=== PATIENT | female | born 1980 | race Caucasian/White ===

== ENCOUNTER 2016-07-16 19:51 | Emergency (ER) | payer OTHER ==
[2016-07-16] MEDS ORDERED: NS 0.9% 1000 ML* 1,000 ML IV ONE (20:22)
[2016-07-16] MEDS ORDERED: Famotidine IV* 10 MG/ML 2 ML (20 mg) IV ONE (20:36)
[2016-07-16] MEDS ORDERED: Ondansetron INJ* 2 MG/ML VIAL IV ONE (20:36)
[2016-07-16 21:03] LABS: Hematocrit 39 % (35-47); Hemoglobin 12.8 g/dl (12.0-16.0); Mean Corpuscular HGB Conc 33 g/dl (31-36); Mean Corpuscular Hemoglobin 29 pg (27-31); Mean Corpuscular Volume 88 fL (80-97); Mean Platelet Volume 7 um3 (7.4-10.4); Red Blood Count 4.47 10^6/ul (4.0-5.4); Red Cell Distribution Width 13 % (10.5-15); White Blood Count 4.3 10^3/ul (3.5-10.8)
[2016-07-16 21:18] LABS: Albumin 4.3 g/dL (3.2-5.2); Alkaline Phosphatase 98 U/L (34-104); Amylase 28 U/L (29-103); Anion Gap 8 mmol/L (2-11); BUN/Creatinine Ratio 22.9 (8-20); Blood Urea Nitrogen 16 mg/dL (6-24); C Reactive Protein 16.13 mg/L (< 5.00); CO2 Carbon Dioxide 26 mmol/L (22-32); Calcium 9.1 mg/dL (8.6-10.3); Chloride 100 mmol/L (101-111); EGFR African American 121.8 (>60); EGFR Non-African American 94.7 (>60); Globulin 3.1 g/dL (2-4); Glucose 113 mg/dL (70-100); Lipase 19 U/L (11.0-82.0); Potassium 3.5 mmol/L (3.5-5.0); Sodium 134 mmol/L (133-145); Total Protein 7.4 g/dL (6.4-8.9)
[2016-07-16 21:37] LABS: ALT 1393 U/L (7-52); AST 1710 U/L (13-39)
--- NOTE | 2016-07-16 22:38 | RAD ---
HISTORY: Right upper quadrant pain, increased LFTs COMPARISONS: None relevant TECHNIQUE: Multiple transverse and longitudinal ultrasound images were obtained of the right upper quadrant of the abdomen using grayscale and color Doppler imaging. FINDINGS: The study is limited by patient bowel gas. LIVER: The liver is diffusely echogenic and coarse in echotexture, with decreased acoustic transmission. The liver is enlarged measuring 20 cm in long axis.. There is normal hepatopedal flow of the portal vein on Doppler imaging. BILIARY TREE: There is no intrahepatic or extrahepatic biliary dilatation. The common duct measures 0.4 cm. GALLBLADDER: The patient is status post cholecystectomy. PANCREAS: The pancreas is obscured by overlying bowel gas. RIGHT KIDNEY: The right kidney is normal in shape, size, contour, and echogenicity. There is no hydronephrosis or nephrolithiasis. The right kidney measures 11.8 x 4.8 x 5.1 cm. AORTA AND IVC: The aorta is not well visualized secondary to overlying bowel gas. The IVC is unremarkable. FLUID: There are no pleural effusions. There is no free fluid within the hepatorenal recess. OTHER FINDINGS: None. IMPRESSION: HEPATOMEGALY WITH FATTY INFILTRATION OF THE LIVER
[2016-07-16 23:01] LABS: Acetaminophen < 15 mcg/mL
[2016-07-16 23:05] VITALS: BP 127/68
[2016-07-16] MEDS ORDERED: Ondansetron ODT TAB* 4 MG PO ONE (23:38)
--- NOTE | 2016-07-16 23:48 | ED ---
Janett Chow Anna, scribed for Mike Londono MD on 07/16/16 at 2036 . GI/ HPI - HPI Summary HPI Summary: Pt is a 36 y/o female coming to [facility] presenting with sudden onset of intermittent n/v/d that began at 0400 this morning. She describes the severity of the pain as 10/10. She has had five episodes of emesis, including a prolonged episode this morning, and she has not eaten today. She was not able to keep down the fluids she drank this afternoon. She additionally reports cramping abd pain beginning this afternoon, diarrhea, sweats, and lower back pain that extends into her leg as a result of a slipped disk. She took Tylenol this morning, which did not alleviate the symptoms. She has been using steroid injections for her lower back pain, but the injections have not fully alleviated the pain. She denies recent travel or use of Abx. Contacts at home have recently had stomach flu and PNA. - History of Current Complaint Chief Complaint: EDNauseaVomitDiarrh Time Seen by Provider: 07/16/16 20:21 Stated Complaint: VOMITING Hx Obtained From: Patient, Family/Hemp [employer] Taker Off - accompanied by boyfriend Onset/Duration: Started Hours Ago Timing: Intermittent Severity: Moderate Current Severity: Moderate Pain Intensity: 10 - Allergy/Home Medications Allergies/Adverse Reactions: Allergies Allergy/AdvReac Type Severity Reaction Status Date / Time Cyclobenzaprine Allergy Hives/Diff. Verified 07/16/16 20:03 [From Flexeril] Breathing/I tching PMH/Surg Hx/FS Hx/Imm Hx Endocrine/Hematology History: Reports: Hx Thyroid Disease Denies: Hx Diabetes Cardiovascular History: Denies: Hx Hypertension, Hx Pacemaker/ICD Respiratory History: Denies: Hx Asthma, Hx Chronic Obstructive Pulmonary Disease (COPD) GI History: Denies: Hx Ulcer History: Denies: Hx Dialysis, Hx Renal Disease Musculoskeletal History: Reports: Hx Back Problems - herniated disc Sensory History: Denies: Hx Hearing Aid Neurological History: Reports: Other Neuro Impairments/Disorders - PAIN CLINIC PT Psychiatric History: Reports: Hx Panic Disorder - anxiety - Surgical History Surgery Procedure, Year, and Place: 2011 - back surgery - herniated disk (L5-S1 per Pt). 2008 - uterine ablation. 2007 - c-sec and tubal. 2000 - gallbladder removed, C Section. Tonsillectomy and adenoidectomy. Breast reduction at age 16, reconstructive jaw surgery age 14. 2015 VEIN SURGERY ON RIGHT LEG Infectious Disease History: No Infectious Disease History: Denies: Hx Hepatitis, Hx Human Immunodeficiency Virus (HIV), Traveled Outside the [place] in Last 30 Days - Family History Known Family History: Negative: Cardiac Disease, Diabetes - Social History Occupation: Employed Full-time Lives: With Family Alcohol Use: Occasionally Substance Use Type: Reports: None Substance Use Comment - Amount & Last Used: hydrocodone/acetaminophen Smoking Status (MU): Never Smoked Tobacco Review of Systems Positive: Skin Diaphoresis Positive: Abdominal Pain, Vomiting, Diarrhea, Nausea Positive: Myalgia All Other Systems Reviewed And Are Negative: Yes Physical Exam Triage Information Reviewed: Yes Vital Signs On Initial Exam: Initial Vitals Temp Pulse Resp BP Pulse Ox 98.8 F 106 16 149/78 100 07/16/16 20:00 07/16/16 20:00 07/16/16 20:00 07/16/16 20:00 07/16/16 20:00 Vital Signs Reviewed: Yes Appearance: Positive: Well-Appearing, No Pain Distress, Well-Nourished Skin: Positive: Warm, Skin Color Reflects Adequate Perfusion, Dry Head/Face: Positive: Normal Head/Face Inspection Eyes: Positive: EOMI, HANS Neck: Positive: Supple, Nontender Respiratory/Lung Sounds: Positive: Clear to Auscultation, Breath Sounds Present Cardiovascular: Positive: Normal, RRR Abdomen Description: Positive: Other: - Mild diffuse abd tenderness. No rebound.. Negative: Guarding Bowel Sounds: Positive: Present Musculoskeletal: Positive: Normal, Strength/ROM Intact Neurological: Positive: Normal, Sensory/Motor Intact, Alert, Oriented to Person Place, Time Psychiatric: Positive: Affect/Mood Appropriate Diagnostics - Vital Signs Vital Signs Temp Pulse Resp BP Pulse Ox 07/16/16 20:00 98.8 F 106 16 149/78 100 - Laboratory Lab Results: Lab Results 07/16/16 07/16/16 Range/Units 20:38 20:38 WBC 4.3 (3.5-10.8) 10^3/ul RBC 4.47 (4.0-5.4) 10^6/ul Hgb 12.8 (12.0-16.0) g/dl Hct 39 (35-47) % MCV 88 (80-97) fL MCH 29 (27-31) pg MCHC 33 (31-36) g/dl RDW 13 (10.5-15) % Plt Count 156 (150-450) 10^3/ul MPV 7 L (7.4-10.4) um3 Neut % (Auto) 79.1 (38-83) % Lymph % (Auto) 10.7 L (25-47) % [place] % (Auto) 9.9 H (1-9) % Eos % (Auto) 0.2 (0-6) % Baso % (Auto) 0.1 (0-2) % Absolute Neuts (auto) 3.4 (1.5-7.7) 10^3/ul Absolute Lymphs (auto) 0.5 L (1.0-4.8) 10^3/ul Absolute Monos (auto) 0.4 (0-0.8) 10^3/ul Absolute Eos (auto) 0 (0-0.6) 10^3/ul Absolute Basos (auto) 0 (0-0.2) 10^3/ul Absolute Nucleated RBC 0 10^3/ul Nucleated RBC % 0 Sodium 134 (133-145) mmol/L Potassium 3.5 (3.5-5.0) mmol/L Chloride 100 L (101-111) mmol/L Carbon Dioxide 26 (22-32) mmol/L Anion Gap 8 (2-11) mmol/L BUN 16 (6-24) mg/dL Creatinine 0.70 (0.51-0.95) mg/dL Est GFR ( Amer) 121.8 (>60) Est GFR (Non-Af Amer) 94.7 (>60) BUN/Creatinine Ratio 22.9 H (8-20) Glucose 113 H (70-100) mg/dL Calcium 9.1 (8.6-10.3) mg/dL Total Bilirubin 2.00 H (0.2-1.0) mg/dL AST 1710 H (13-39) U/L ALT 1393 H (7-52) U/L Alkaline Phosphatase 98 (34-104) U/L C-Reactive Protein 16.13 H (< 5.00) mg/L Total Protein 7.4 (6.4-8.9) g/dL Albumin 4.3 (3.2-5.2) g/dL Globulin 3.1 (2-4) g/dL Albumin/Globulin Ratio 1.4 (1-3) Amylase 28 L (29-103) U/L Lipase 19 (11.0-82.0) U/L Beta HCG, Quant < 0.60 mIU/mL Acetaminophen < 15 mcg/mL Result Diagrams: 07/16/16 20:38 07/16/16 20:38 Lab Statement: Any lab studies that have been ordered have been reviewed, and results considered in the medical decision making process. - Ultrasound No standard instances Ultrasound Interpretation: Positive (See Comments) Ultrasound Interpretation Completed By: Radiologist - ABD US IMPRESSION: HEPATOMEGALY WITH FATTY INFILTRATION OF THE LIVER GIGU Course/Dx - Course Assessment/Plan: Pt is a 36 y/o female coming to [facility] presenting with sudden onset of intermittent n/v/d that began at 0400 this morning. She describes the severity of the pain as 10/10. She has had five episodes of emesis, including a prolonged episode this morning, and she has not eaten today. She was not able to keep down the fluids she drank this afternoon. She additionally reports cramping abd pain beginning this afternoon, diarrhea, sweats, and lower back pain that extends into her leg as a result of a slipped disk. She took Tylenol this morning, which did not alleviate the symptoms. She has been using steroid injections for her lower back pain, but the injections have not fully alleviated the pain. She denies recent travel or use of Abx. Contacts at home have recently had stomach flu and PNA. Bloodwork shows chloride level of 100, glucose of 113, total bilirubin of 2.00, AST of 1710, ALT of 1393, and C- reactive protein of 16.13. Amylase and lipase are normal. Tylenol level is <15. RUQ US shows hepatomegaly with fatty infiltration of the liver. In the ED course, pt was given IV fluids, Zofran for nausea, and her symptoms have resolved. At this point, she is asymptomatic. In assessment of her abdomen, it is soft, mildly tender in the epigastric area without rebounding or guarding. There are positive bowel sounds. Pt reports that the last few days she has been taking lots of Tylenol however level is only 15. Denies alcohol intake or hx of hepatitis. Discussed case with Dr. Cardenas (GI) at 2320. He recommends no further studies. Pt can follow up as an outpatient. I will be giving a prescription for Zofran for the pt. She was recommended to return to the ED for any pain, n/v, fever, chills, or any other changing or worsening symptoms. At this time, the pt will be discharged home. She is hemodynamically stable and A& Ox3. she understands she should return to the emergency room if she experiences any increase in abdominal pain, nausea and vomiting not controlled by Zofran, fevers, chills, or any other symptoms. She will also f/u results of hepatitis pannel with PMD - Diagnoses Differential Diagnoses - Female: Constipation, Colitis, Gall Bladder Disease, Urinary Tract Infection Provider Diagnoses: increased LFT, Nausea vomiting and diarrhea - Physician Notifications Discussed Care Of Patient With: Dr. Cardenas (GI) at 2320. He recommends no further studies. Pt can follow up as an outpatient. Discharge - Discharge Plan Condition: Stable Disposition: HOME Prescriptions: Ondansetron ODT TAB* [Zofran Odt TAB*] 4 mg PO Q6H PRN #12 tab.odt PRN Reason: Vomiting Patient Education Materials: Ondansetron (By mouth), Liver Profile (GEN), Acute Nausea and Vomiting (ED) Referrals: Chris Cardenas MD [Medical Doctor] - Veronica Auguste MD [Primary Care Provider] - Additional Instructions: Follow up with primary care physician within 48 hours. Return to the emergency room if you experience any increase in abdominal pain, nausea and vomiting not controlled by Zofran, fevers, chills, or any other symptoms. The documentation as recorded by the Janett martin Anna accurately reflects the service I personally performed and the decisions made by , Mike Londono MD.
== END 2016-07-17 00:13 | disposition home or self-care (01) ==
LOC: ED 19:51
DX: R11.2 Nausea with vomiting, unspecified (principal); R19.7 Diarrhea, unspecified; R79.89 Other specified abnormal findings of blood chemistry; K21.9 Gastro-esophageal reflux disease without esophagitis; M54.5 Low back pain; K76.0 Fatty (change of) liver, not elsewhere classified
CPT/HCPCS: 36415; 76705; 80053; 80074; 80329; 82150; 83690; 84702; 85025; 86140; 96360; 96374; 96375; 99283; A9270-GY; G0480; J2405

== ENCOUNTER 2017-01-06 10:54 | Emergency (ER) | payer OTHER ==
--- NOTE | 2017-01-06 11:32 | RAD ---
Indication: Left ankle swelling. 3 views of left ankle demonstrate soft tissue swelling laterally. There is likely a nondisplaced transverse fracture of the distal fibula. IMPRESSION: Nondisplaced fracture of the distal fibula with soft tissue swelling laterally.
[2017-01-06 11:39] VITALS: BP 110/74
--- NOTE | 2017-02-06 17:18 | UC ---
Lower Extremity/Ankle HPI - HPI Summary HPI Summary: Stepped off curb and twisted left ankle at 9pm the night prior - History of Current Complaint Chief Complaint: UCLowerExtremity Stated Complaint: ANKLE INJURY Time Seen by Provider: 01/06/17 11:36 Hx Obtained From: Patient Hx Last Menstrual Period: 12/23/16 ?: No Onset/Duration: Sudden Onset, Lasting Days - 1, Still Present Severity Initially: Mild Severity Currently: Mild Pain Intensity: 4 Pain Scale Used: 0-10 Numeric Aggravating Factor(s): Standing, Ambulation Alleviating Factor(s): Rest, Elevation - Allergies/Home Medications Allergies/Adverse Reactions: Allergies Allergy/AdvReac Type Severity Reaction Status Date / Time Cyclobenzaprine Allergy Hives/Diff. Verified 01/06/17 11:11 [From Flexeril] Breathing/I tching PMH/Surg Hx/FS Hx/Imm Hx Previously Healthy: No Endocrine History: Hypothyroidism Psychological History: Depression - Surgical History Surgical History: Yes Surgery Procedure, Year, and Place: 2011 - back surgery - herniated disk (L5-S1 per Pt). 2008 - uterine ablation. 2007 - c-sec and tubal. 2000 - gallbladder removed, C Section. Tonsillectomy and adenoidectomy. Breast reduction at age 16, reconstructive jaw surgery age 14. 2014 VEIN SURGERY ON RIGHT LEG - Family History Known Family History: Positive: None Negative: Cardiac Disease, Diabetes - Social History Occupation: Unemployed Lives: With Family Alcohol Use: Occasionally Substance Use Type: None Substance Use Comment - Amount & Last Used: hydrocodone/acetaminophen Smoking Status (MU): Never Smoked Tobacco Review of Systems Constitutional: Negative Skin: Negative Eyes: Negative ENT: Negative Respiratory: Negative Cardiovascular: Negative Gastrointestinal: Negative Genitourinary: Negative Motor: Negative Neurovascular: Negative Musculoskeletal: Arthralgia - lateral left ankle pain Neurological: Negative Psychological: Negative All Other Systems Reviewed And Are Negative: Yes Physical Exam Triage Information Reviewed: Yes Appearance: Well-Appearing, No Pain Distress, Well-Nourished Vital Signs: Initial Vital Signs Temp 97.6 F 01/06/17 11:12 Resp 16 01/06/17 11:12 Vital Signs Reviewed: Yes Eye Exam: Normal Eyes: Positive: Conjunctiva Clear ENT Exam: Normal ENT: Positive: Normal ENT inspection, Hearing grossly normal. Negative: Nasal congestion, Nasal drainage, Trismus, Muffled/hoarse voice Dental Exam: Normal Neck exam: Normal Neck: Positive: Supple, Nontender Respiratory Exam: Normal Respiratory: Positive: No respiratory distress, No accessory muscle use Cardiovascular Exam: Normal Cardiovascular: Positive: RRR, Pulses Normal, Brisk Capillary Refill Musculoskeletal Exam: Other - left lateral ankle Musculoskeletal: Positive: Edema @ Neurological Exam: Normal Neurological: Positive: Alert Psychological Exam: Normal Skin Exam: Normal Diagnostics - Radiology No standard instances Xray Interpretation: Positive (See Comments) Radiology Interpretation Completed By: Radiologist Lower Extremity Course/Dx - Course Course Of Treatment: cam boot, crutches, rice, ibuprofen, hydrocodone, follow with ortho this week, NWB - Differential Dx/Diagnosis Differential Diagnosis/HQI/PQRI: Fracture (Closed), Sprain, Strain Provider Diagnoses: Non displaced left distal fibula fracture Discharge - Discharge Plan Condition: Stable Disposition: HOME Prescriptions: Hydrocodone-Acetaminophen [Hydrocodone/Acetaminophen 5-325 mg] 1 tab PO Q6H PRN #20 tab MDD 4 PRN Reason: Pain Meloxicam 7.5 mg PO BID #60 Meloxicam [Mobic] 7.5 mg PO BID #60 tab Patient Education Materials: Ankle Fracture (ED), Crutch Instructions (ED), RICE Therapy (ED) Referrals: Veronica Auguste MD [Primary Care Provider] - Willam Hernandez MD [Medical Doctor] - 4 Days
== END 2017-01-06 12:20 | disposition home or self-care (01) ==
LOC: UCEAST 10:54
DX: S82.832A Other fracture of upper and lower end of left fibula, initial encounter for closed fracture (principal); X50.1XXA Overexertion from prolonged static or awkward postures, initial encounter; Y93.89 Activity, other specified; Y92.480 Sidewalk as the place of occurrence of the external cause; E03.9 Hypothyroidism, unspecified; F32.9 Major depressive disorder, single episode, unspecified; Z90.49 Acquired absence of other specified parts of digestive tract; Z88.8 Allergy status to other drugs, medicaments and biological substances
CPT/HCPCS: 99213; G0463

== ENCOUNTER 2017-05-23 22:02 | Emergency (ER) | payer OTHER ==
[2017-05-23 22:08] VITALS: BP 121/68
[2017-05-23] MEDS ORDERED: Dexamethasone TAB* 4 MG PO ONE (22:25)
--- NOTE | 2017-05-23 22:43 | ED ---
Throat Pain/Nasal Congestion - HPI Summary HPI Summary: 36F presents with sore throat, cough, and sinus congestion for 2 days. She states her throat is bothering her the most. She states it hurts to swallow but is still able to do so. no chest pain or SOB. no abdominal pain. States has post nasal drip. states has had some mucus with blood in it. no medical history. significant other has similar symptoms and was seen here for symptoms. denies any history of strept. no fevers. - History of Current Complaint Chief Complaint: EDThroatPain Time Seen by Provider: 05/23/17 22:16 - Allergies/Home Medications Allergies/Adverse Reactions: Allergies Allergy/AdvReac Type Severity Reaction Status Date / Time Cyclobenzaprine Allergy Hives/Diff. Verified 01/06/17 11:11 [From Flexeril] Breathing/I tching PMH/Surg Hx/FS Hx/Imm Hx Endocrine/Hematology History: Reports: Hx Thyroid Disease Denies: Hx Diabetes Cardiovascular History: Denies: Hx Hypertension, Hx Pacemaker/ICD Respiratory History: Denies: Hx Asthma, Hx Chronic Obstructive Pulmonary Disease (COPD) GI History: Denies: Hx Ulcer History: Denies: Hx Dialysis, Hx Renal Disease Musculoskeletal History: Reports: Hx Back Problems - herniated disc Sensory History: Denies: Hx Hearing Aid Neurological History: Reports: Other Neuro Impairments/Disorders - PAIN CLINIC PT Psychiatric History: Reports: Hx Panic Disorder - anxiety - Surgical History Surgery Procedure, Year, and Place: 2011 - back surgery - herniated disk (L5-S1 per Pt). 2008 - uterine ablation. 2007 - c-sec and tubal. 2000 - gallbladder removed, C Section. Tonsillectomy and adenoidectomy. Breast reduction at age 16, reconstructive jaw surgery age 14. 2014 VEIN SURGERY ON RIGHT LEG Infectious Disease History: No Infectious Disease History: Denies: Hx Hepatitis, Hx Human Immunodeficiency Virus (HIV), Traveled Outside the [place] in Last 30 Days - Family History Known Family History: Positive: None Negative: Cardiac Disease, Diabetes - Social History Alcohol Use: Occasionally Substance Use Type: Reports: None Substance Use Comment - Amount & Last Used: hydrocodone/acetaminophen Smoking Status (MU): Never Smoked Tobacco Review of Systems Negative: Fever Positive: Sore Throat, Nasal Discharge Negative: Chest Pain Positive: Cough. Negative: Shortness Of Breath All Other Systems Reviewed And Are Negative: Yes Physical Exam Triage Information Reviewed: Yes Vital Signs On Initial Exam: Initial Vitals Temp Pulse Resp BP Pulse Ox 97.6 F 70 20 121/68 97 05/23/17 22:05 05/23/17 22:05 05/23/17 22:05 05/23/17 22:05 05/23/17 22:05 Vital Signs Reviewed: Yes Appearance: Positive: Well-Appearing Skin: Positive: Warm, Dry Head/Face: Positive: Normal Head/Face Inspection Eyes: Positive: Normal, EOMI, HANS, Conjunctiva Clear ENT: Positive: Normal ENT inspection, Pharyngeal erythema, TMs normal, Uvula midline, Other - soft palate symmetric. Negative: Tonsillar swelling, Tonsillar exudate, Trismus, Muffled voice, Hoarse voice Neck: Positive: Supple, Nontender, No Lymphadenopathy Respiratory/Lung Sounds: Positive: Clear to Auscultation, Breath Sounds Present Cardiovascular: Positive: Normal, RRR Abdomen Description: Positive: Nontender, Soft Bowel Sounds: Positive: Present Musculoskeletal: Positive: Normal Neurological: Positive: Normal Psychiatric: Positive: Normal Diagnostics - Vital Signs Vital Signs Temp Pulse Resp BP Pulse Ox 05/23/17 22:37 75 98 05/23/17 22:05 97.6 F 70 20 121/68 97 - Laboratory Lab Results: Lab Results 05/23/17 05/23/17 Range/Units 22:19 22:21 Influenza A (Rapid) Negative (Negative) Influenza B (Rapid) Negative (Negative) Group A Strep Rapid Negative (Negative) Lab Statement: Any lab studies that have been ordered have been reviewed, and results considered in the medical decision making process. EENT Course/Dx - Course Course Of Treatment: 36F presents with sore throat, cough, and sinus congestion for 2 days. She states her throat is bothering her the most. She states it hurts to swallow but is still able to do so. no chest pain or SOB. no abdominal pain. States has post nasal drip. states has had some mucus with blood in it. no medical history. significant other has similar symptoms and was seen here for symptoms. denies any history of strept. no fevers. on exam pharynx erythema, uvula midline, soft palate symmetric. lungs CTA, ear normal. nasal congestion. strept and flu neg. will treat with decadron and magic mouth wash. patinet understand and agrees with plan. - Differential Diagnoses Differential Diagnoses: Pharyngitis, Tonsilitis, URI/Bronchitis - Diagnoses Provider Diagnoses: Pharyngitis, Upper respiratory infection Discharge - Discharge Plan Condition: Good Disposition: HOME Prescriptions: Dexamethasone TAB* [Decadron TAB*] 4 mg PO DAILY #4 tab Magic Mouth Was-TOMMY/MAAL/LIDO* 5 ml SWISH SPIT QID #100 ml Patient Education Materials: Pharyngitis (ED) Referrals: Veronica Auguste MD [Primary Care Provider] - Additional Instructions: Magic mouthwash 5ml swish and spit can use 4x a day Take steroid once a day for 4 more days Take Tylenol or ibuprofen for pain every 6 hours Use saline spray in nose as much as needed Use sudafed for nasal congestion Can gargle salt water Can use cough drops or products such as cloraseptic spray Return to ED if develop fever does not respond to Tylenol or ibuprofen, inability to swallow, or difficulty breathing or any new or worsening symptoms
== END 2017-05-23 22:56 | disposition home or self-care (01) ==
LOC: ED 22:02
DX: J06.9 Acute upper respiratory infection, unspecified (principal); J02.9 Acute pharyngitis, unspecified
CPT/HCPCS: 87502; 87651; 99282; J8540

== ENCOUNTER 2017-09-08 16:48 | Emergency (ER) | payer OTHER ==
[2017-09-08 17:08] VITALS: BP 136/54
--- NOTE | 2017-09-08 17:19 | UC ---
Stan Chow Stephanie, scribed for Dale Patterson MD on 09/08/17 at 1706 . HPI Febrile Illness - HPI Summary HPI Summary: The pt is a 37 y/o F presenting to with c/o fever that began on 09/04/17. Symptoms include SOB, productive cough with green sputum, chills, diaphoresis, wheezing, CP with deep breaths, itching in the ears and rhinorrhea. - History of Current Complaint Time Seen by Provider: 09/08/17 16:49 Hx Obtained From: Patient Hx Last Menstrual Period: 12/23/16 Onset/Duration: Started Days Ago - 4, Still Present Timing: Constant Current Severity: Moderate Aggravating Factors: Nothing Alleviating Factors: Nothing Associated Signs and Symptoms: Cough, Diaphoresis, Other: - SOB, productive cough with green sputum, chills, diaphoresis, wheezing, CP with deep breaths, itching in the ears and rhinorrhea. - Allergy/Home Medications Allergies/Adverse Reactions: Allergies Allergy/AdvReac Type Severity Reaction Status Date / Time cyclobenzaprine Allergy Hives/Diff. Verified 09/08/17 17:03 Breathing/I tching PMH/Surg Hx/FS Hx/Imm Hx Previously Healthy: Yes - The pt denies any past medical hx. - Surgical History Surgical History: Yes Surgery Procedure, Year, and Place: 2011 - back surgery - herniated disk (L5-S1 per Pt). 2008 - uterine ablation. 2007 - c-sec and tubal. 2000 - gallbladder removed, C Section. Tonsillectomy and adenoidectomy. Breast reduction at age 16, reconstructive jaw surgery age 14. 2015 VEIN SURGERY ON RIGHT LEG - Family History Known Family History: Negative: Cardiac Disease, Diabetes - Social History Occupation: Employed Full-time Lives: With Family Alcohol Use: Occasionally Substance Use Type: None Substance Use Comment - Amount & Last Used: hydrocodone/acetaminophen Smoking Status (MU): Never Smoked Tobacco Have You Smoked in the Last Year: No Review of Systems Constitutional: Fever, Chills, Other - diaphoresis Skin: Negative Eyes: Negative ENT: Nasal Discharge, Other - itching ears Respiratory: Shortness Of Breath, Cough, Other - wheezing Cardiovascular: Chest Pain - with deep breaths Gastrointestinal: Negative Genitourinary: Negative Motor: Negative Neurovascular: Negative Musculoskeletal: Negative Neurological: Negative Psychological: Negative Is Patient Immunocompromised?: No All Other Systems Reviewed And Are Negative: Yes Physical Exam - Summary Physical Exam Summary: General: well-appearing, no pain distress Skin: warm, color reflects adequate perfusion, dry Head: normal Eyes: EOMI, HANS ENT: rhinorrhea, erythematous posterior pharynx Neck: supple, nontender, anterior cervical lymphadenopathy Respiratory: CTA, breath sounds present Cardiovascular: RRR Abdomen: soft, nontender Bowel: present Musculoskeletal: normal, strength/ROM intact Neurological: normal, sensory/motor intact, A&O x3 Psychological: affect/mood appropriate Triage Information Reviewed: Yes Vital Signs: Initial Vital Signs Temp 98.2 F 09/08/17 17:04 Pulse 104 09/08/17 17:04 Resp 20 09/08/17 17:04 BP 136/54 09/08/17 17:04 Pulse Ox 97 09/08/17 17:04 Vital Signs Reviewed: Yes Course/Dx - Diagnoses Clinic Provider Diagnoses: BRONCHITIS WITH BRONCHOSPASM Discharge - Sign-Out/Discharge Documenting (check all that apply): Discharge - Discharge Plan Condition: Stable Disposition: HOME Prescriptions: Albuterol HFA INHALER* [Ventolin HFA Inhaler*] 2 puff INH Q4H PRN #1 mdi PRN Reason: Wheezing Azithromyxin CHESTER (NF) [Z-Chester (Zithromax) 250 mg tabs #6] 2 tab PO .TODAY, THEN 1 DAILY #6 tab Benzonatate CAP* [Tessalon 100 MG CAP*] 100 mg PO TID PRN #15 cap PRN Reason: Cough Patient Education Materials: Acute Bronchitis (ED), Wheezing (ED) Forms: *Work Release Referrals: Veronica Auguste MD [Primary Care Provider] - Additional Instructions: FOLLOW UP WITH YOUR DOCTOR. GET RECHECKED FOR ANY WORSENING OF YOUR CONDITION OR QUESTIONS OR CONCERNS. - Billing Disposition and Condition Condition: STABLE Disposition: HOME The documentation as recorded by the Stan martin Stephanie accurately reflects the service I personally performed and the decisions made by me, Dale Patterson MD.
== END 2017-09-08 17:20 | disposition home or self-care (01) ==
LOC: UCEAST 16:48
DX: J20.9 Acute bronchitis, unspecified (principal); Z88.8 Allergy status to other drugs, medicaments and biological substances
CPT/HCPCS: 99212; G0463

== ENCOUNTER 2017-09-26 19:38 | Emergency (ER) | payer OTHER ==
--- NOTE | 2017-09-26 20:13 | UC ---
Knee Pain HPI - HPI Summary HPI Summary: Patient received a clip injury to her left knee by a dog at the dog park had immediate pain and burning in her knee and felt like her knee was all gone for stable - History of Current Complaint Chief Complaint: UCLowerExtremity Stated Complaint: KNEE INJURY Time Seen by Provider: 09/26/17 20:12 Hx Obtained From: Patient ?: No Onset/Duration: Sudden Onset, Lasting Hours Severity Initially: Moderate Severity Currently: Moderate Location Of Injury: left knee Character: Aching, Throbbing Aggravating Factor(s): Movement, Weight Bearing Alleviating Factor(s): Position Associated Signs And Symptoms: Positive: Negative Able to Bear Weight: Yes - Allergies/Home Medications Allergies/Adverse Reactions: Allergies Allergy/AdvReac Type Severity Reaction Status Date / Time cyclobenzaprine Allergy Hives/Diff. Verified 09/26/17 20:17 Breathing/I tching PMH/Surg Hx/FS Hx/Imm Hx Previously Healthy: No Endocrine History: Hypothyroidism Psychological History: Depression - Surgical History Surgical History: Yes Surgery Procedure, Year, and Place: 2011 - back surgery - herniated disk (L5-S1 per Pt). 2008 - uterine ablation. 2007 - c-sec and tubal. 2000 - gallbladder removed, C Section. Tonsillectomy and adenoidectomy. Breast reduction at age 16, reconstructive jaw surgery age 14. 2014 VEIN SURGERY ON RIGHT LEG - Family History Known Family History: Positive: None Negative: Cardiac Disease, Diabetes - Social History Occupation: Employed Part-time Lives: With Family Alcohol Use: Occasionally Substance Use Type: None Substance Use Comment - Amount & Last Used: hydrocodone/acetaminophen Smoking Status (MU): Never Smoked Tobacco Have You Smoked in the Last Year: No Review of Systems Constitutional: Negative Skin: Negative Eyes: Negative ENT: Negative Respiratory: Negative Cardiovascular: Negative Gastrointestinal: Negative Genitourinary: Negative Motor: Negative Neurovascular: Negative Musculoskeletal: Arthralgia - left knee pain Neurological: Negative Psychological: Negative Is Patient Immunocompromised?: No All Other Systems Reviewed And Are Negative: Yes Physical Exam Triage Information Reviewed: Yes Appearance: Well-Appearing, Well-Nourished, Pain Distress Vital Signs Reviewed: Yes Eye Exam: Normal Eyes: Positive: Conjunctiva Clear ENT Exam: Normal ENT: Positive: Normal ENT inspection, Hearing grossly normal. Negative: Nasal congestion, Nasal drainage, Trismus, Muffled voice, Hoarse voice Dental Exam: Normal Neck exam: Normal Neck: Positive: Supple, Nontender, No Lymphadenopathy Respiratory Exam: Normal Respiratory: Positive: Chest non-tender, No respiratory distress, No accessory muscle use Cardiovascular Exam: Normal Cardiovascular: Positive: RRR, Pulses Normal, Brisk Capillary Refill Musculoskeletal Exam: Normal Musculoskeletal: Positive: ROM Intact, No Edema, Strength Limited @ - left knee Neurological Exam: Normal Neurological: Positive: Alert, Muscle Tone Normal Psychological Exam: Normal Skin Exam: Normal Diagnostics - Radiology No standard instances Xray Interpretation: No Acute Changes Radiology Interpretation Completed By: ED Physician, Radiologist Knee Pain Course/Dx - Course Course Of Treatment: [place] wrap knee immobilizer and crutches ibuprofen hydrocodone rest ice elevation and non- weightbearing. Follow with orthopedic doctor on Friday if not 100% resolved - Differential Dx/Diagnosis Provider Diagnoses: Left knee strain Discharge - Sign-Out/Discharge Documenting (check all that apply): Discharge - Discharge Plan Condition: Stable Disposition: HOME Patient Education Materials: Knee Sprain (DC), Knee Immobilizer (ED) Referrals: Veronica Auguste MD [Primary Care Provider] - Manish Weber MD [Medical Doctor] - 4 Days - Billing Disposition and Condition Condition: STABLE Disposition: HOME
[2017-09-26 20:16] VITALS: BP 139/84
--- NOTE | 2017-09-26 21:02 | RAD ---
INDICATION: Left knee injury. TECHNIQUE: 4 views of the left knee were obtained. FINDINGS: The bones are in normal alignment. There is mild deformity of the proximal fibula most consistent with an old healed fracture. No acute fracture is seen. No joint effusion is present. Joint spaces appear maintained. IMPRESSION: NO EVIDENCE FOR ACUTE FRACTURE.
[2017-09-26] MEDS ORDERED: HYDROcodone/ACETAMIN 5-325 MG* 1 TAB PO ONE (21:15)
== END 2017-09-26 21:38 | disposition home or self-care (01) ==
LOC: UCEAST 19:38
DX: S86.912A Strain of unspecified muscle(s) and tendon(s) at lower leg level, left leg, initial encounter (principal); W54.1XXA Struck by dog, initial encounter; Y93.89 Activity, other specified; Y92.830 Public park as the place of occurrence of the external cause; E03.9 Hypothyroidism, unspecified; F32.9 Major depressive disorder, single episode, unspecified; Z88.8 Allergy status to other drugs, medicaments and biological substances
CPT/HCPCS: 99212; G0463

== ENCOUNTER 2018-06-24 09:48 | Emergency (ER) | payer OTHER ==
[2018-06-24 10:31] VITALS: BP 123/77
--- NOTE | 2018-06-24 10:40 | ED ---
Throat Pain/Nasal Congestion - HPI Summary HPI Summary: sinus stuffiness for one week, loss of sense of taste and smell in the last several days. dry nonproductive cough mild. - History of Current Complaint Chief Complaint: UCRespiratory Time Seen by Provider: 06/24/18 10:19 Hx Obtained From: Patient Onset/Duration: Gradual Onset Severity: Moderate Associated Signs And Symptoms: Positive: Hoarseness, Sinus Discomfort Cough: Nonproductive - Allergies/Home Medications Allergies/Adverse Reactions: Allergies Allergy/AdvReac Type Severity Reaction Status Date / Time cyclobenzaprine Allergy Hives/Diff. Verified 09/26/17 20:17 Breathing/I tching PMH/Surg Hx/FS Hx/Imm Hx Previously Healthy: Yes Endocrine/Hematology History: Reports: Hx Thyroid Disease Denies: Hx Diabetes Cardiovascular History: Denies: Hx Hypertension, Hx Pacemaker/ICD Respiratory History: Reports: Hx Asthma Denies: Hx Chronic Obstructive Pulmonary Disease (COPD) GI History: Denies: Hx Ulcer History: Denies: Hx Dialysis, Hx Renal Disease Musculoskeletal History: Reports: Hx Back Problems - herniated disc Sensory History: Denies: Hx Hearing Aid Neurological History: Reports: Other Neuro Impairments/Disorders - PAIN CLINIC PT Psychiatric History: Reports: Hx Panic Disorder - anxiety - Surgical History Surgery Procedure, Year, and Place: 2011 - back surgery - herniated disk (L5-S1 per Pt). 2008 - uterine ablation. 2007 - c-sec and tubal. 2000 - gallbladder removed, C Section. Tonsillectomy and adenoidectomy. Breast reduction at age 16, reconstructive jaw surgery age 14. 2014 VEIN SURGERY ON RIGHT LEG Infectious Disease History: No Infectious Disease History: Denies: Hx Hepatitis, Hx Human Immunodeficiency Virus (HIV), Traveled Outside the [place] in Last 30 Days - Family History Known Family History: Positive: None Negative: Cardiac Disease, Diabetes - Social History Alcohol Use: Rare Substance Use Type: Reports: None Substance Use Comment - Amount & Last Used: hydrocodone/acetaminophen Smoking Status (MU): Never Smoked Tobacco Have You Smoked in the Last Year: No Review of Systems Positive: Chills, Skin Diaphoresis Eyes: Negative ENT: Negative Positive: Sore Throat, Ear Ache Cardiovascular: Negative Positive: Cough Genitourinary: Negative Musculoskeletal: Negative All Other Systems Reviewed And Are Negative: Yes Physical Exam Triage Information Reviewed: Yes Vital Signs On Initial Exam: Initial Vitals Temp Pulse Resp BP Pulse Ox 37.2 C 89 18 123/77 98 06/24/18 10:24 06/24/18 10:24 06/24/18 10:24 06/24/18 10:24 06/24/18 10:24 Vital Signs Reviewed: Yes Appearance: Positive: Well-Appearing Skin: Positive: Warm Head/Face: Positive: Normal Head/Face Inspection Eyes: Positive: Normal ENT: Positive: Normal ENT inspection Neck: Positive: Supple Respiratory/Lung Sounds: Positive: Clear to Auscultation Cardiovascular: Positive: Normal Abdomen Description: Positive: Nontender Bowel Sounds: Positive: Present Musculoskeletal: Positive: Normal Diagnostics - Vital Signs Vital Signs Temp Pulse Resp BP Pulse Ox 06/24/18 10:24 37.2 C 89 18 123/77 98 - Laboratory Lab Statement: Any lab studies that have been ordered have been reviewed, and results considered in the medical decision making process. EENT Course/Dx - Diagnoses Provider Diagnoses: Sinusitis, acute Discharge - Sign-Out/Discharge Documenting (check all that apply): Patient Departure All imaging exams completed and their final reports reviewed: No Studies - Discharge Plan Condition: Fair Disposition: HOME Prescriptions: Amoxicillin PO (*) [Amoxicillin 875 MG (*)] 875 mg PO BID 7 Days #14 tab Fluticasone NASAL SPRAY 50MCG* [Flonase NASAL SPRAY 50MCG*] 2 spray BOTH NARES DAILY #1 btl Patient Education Materials: Rhinosinusitis (DC) Referrals: Veronica Auguste MD [Primary Care Provider] - - Billing Disposition and Condition Condition: FAIR Disposition: Home
== END 2018-06-24 11:20 | disposition home or self-care (01) ==
LOC: UCEAST 09:48
DX: J01.90 Acute sinusitis, unspecified (principal); Z88.8 Allergy status to other drugs, medicaments and biological substances
CPT/HCPCS: 99212; G0463

== ENCOUNTER 2018-06-25 17:54 | Inpatient (IN) | payer OTHER ==
[2018-06-25] MEDS ORDERED: Morphine VIAL* 4 MG/ML VIAL (1 ml vial) IV ONE (19:16)
[2018-06-25] MEDS ORDERED: Ondansetron INJ* 2 MG/ML VIAL IV ONE (19:16)
[2018-06-25] MEDS ORDERED: Dexamethasone IV* 4 MG/ML 5 ML VIAL (20 MG) IVPB ONE (19:16)
--- NOTE | 2018-06-25 19:38 | ED ---
Back Pain - HPI Summary HPI Summary: Patient is a 37-year-old who presents emergency department for back pain and leg numbness/weakness times one day. Patient states she has a history of low back pain and has had surgery in the past. Patient notes she was doing more lifting over the last few weeks and developed low back pain about a week ago. - History of Current Complaint Chief Complaint: EDBackInjuryPain Stated Complaint: BACK PAIN Time Seen by Provider: 06/25/18 18:34 Hx Obtained From: Patient Hx Last Menstrual Period: now Pain Intensity: 10 - Allergies/Home Medications Allergies/Adverse Reactions: Allergies Allergy/AdvReac Type Severity Reaction Status Date / Time cyclobenzaprine Allergy Hives/Diff. Verified 09/26/17 20:17 Breathing/I tching PMH/Surg Hx/FS Hx/Imm Hx Previously Healthy: Yes Endocrine/Hematology History: Reports: Hx Thyroid Disease Denies: Hx Diabetes Cardiovascular History: Denies: Hx Hypertension, Hx Pacemaker/ICD Respiratory History: Reports: Hx Asthma Denies: Hx Chronic Obstructive Pulmonary Disease (COPD) GI History: Denies: Hx Ulcer History: Denies: Hx Dialysis, Hx Renal Disease Musculoskeletal History: Reports: Hx Back Problems - herniated disc Sensory History: Denies: Hx Hearing Aid Neurological History: Reports: Other Neuro Impairments/Disorders - PAIN CLINIC PT Psychiatric History: Reports: Hx Panic Disorder - anxiety - Surgical History Surgery Procedure, Year, and Place: 2011 - back surgery - herniated disk (L5-S1 per Pt). 2008 - uterine ablation. 2007 - c-sec and tubal. 2000 - gallbladder removed, C Section. Tonsillectomy and adenoidectomy. Breast reduction at age 16, reconstructive jaw surgery age 14. 2015 VEIN SURGERY ON RIGHT LEG Infectious Disease History: No Infectious Disease History: Denies: Hx Hepatitis, Hx Human Immunodeficiency Virus (HIV), Traveled Outside the [place] in Last 30 Days - Family History Known Family History: Positive: None Negative: Cardiac Disease, Diabetes - Social History Occupation: Employed Full-time Lives: With Family Alcohol Use: Rare Substance Use Type: Reports: Prescribed Substance Use Comment - Amount & Last Used: hydrocodone/acetaminophen Smoking Status (MU): Never Smoked Tobacco Have You Smoked in the Last Year: No Review of Systems Constitutional: Negative Negative: Fever, Chills Gastrointestinal: Negative Genitourinary: Negative Positive: Other - back and leg pain Positive: Weakness, Numbness All Other Systems Reviewed And Are Negative: Yes Physical Exam Triage Information Reviewed: Yes Vital Signs On Initial Exam: Initial Vitals Temp Pulse Resp BP Pulse Ox 97.8 F 89 18 162/89 98 06/25/18 18:03 06/25/18 18:03 06/25/18 18:03 06/25/18 18:03 06/25/18 18:03 Vital Signs Reviewed: Yes Appearance: Positive: Pain Distress - Pt. lying in bed on left side. Appears uncomfortable but nontoxic. Skin: Positive: Warm, Dry Head/Face: Positive: Normal Head/Face Inspection Eyes: Positive: Normal, EOMI Neck: Positive: Supple Musculoskeletal: Positive: Other - No midline tendernes on back exam. Decreased strength with flexion and dorsiflexion of right foot. Mild diffuse decrease sensation as well to right leg. Rectal exam done with nurseDawn. Nonthrombosed hemorrhoids. Decreased sensation and tone to rectum and perianal region. Neurological: Positive: Normal, CN Intact II-III Diagnostics - Vital Signs Vital Signs Temp Pulse Resp BP Pulse Ox 06/25/18 19:26 15 06/25/18 18:03 97.8 F 89 18 162/89 98 - Laboratory Result Diagrams: 06/25/18 20:22 06/25/18 20:22 Lab Statement: Any lab studies that have been ordered have been reviewed, and results considered in the medical decision making process. Back Pain Course/Dx - Course Course Of Treatment: Pt. presenting with worsening low back pain, right leg weakness, and saddle paresthesia. She is afebrile with stable VS. Given exam will obtain lumbar MRI to evaluate for cauda equina syndrome. Pt. given IV morphine and decadron. NPO. Labs are unremarkable. MRI per virtual radiology: IMPRESSION: 1. Degenerative disc disease greatest at L4-L5 1 there is disc bulge with. superimposed moderate to large left central caudally migrating extrusion. contributing to severe central canal stenosis, moderate to severe right lateral. recess stenosis and severe left lateral recess stenosis. Surgical consultation. may be considered. 2. Additional findings as above. Neurosx. consulted, Dr. Cyr. Dr. Cyr examined pt. in the ER and plans to take her to the OR tonight. Please see his consultation for further details. I spoke with hospitalist, Dr. Weinstein, and she agrees to admit pt. to her service. Pt. transferred to OR stable. - Diagnoses Differential Diagnosis/HQI/PQRI: Positive: Cauda Equina Syndrome, Compressive Cord Syndrome, Epidural Abscess, Herniated Disc Provider Diagnoses: Bulging lumbar disc, Weakness, Paresthesia Discharge - Sign-Out/Discharge Documenting (check all that apply): Patient Departure - Discharge Plan Condition: Stable Disposition: ADMITTED TO [facility] Referrals: Veronica Auguste MD [Primary Care Provider] - - Billing Disposition and Condition Condition: STABLE Disposition: Admitted to [facility]
[2018-06-25 20:30] LABS: ABS Basophils 0 10^3/ul (0-0.2); ABS Eosinophils 0 10^3/ul (0-0.6); ABS Lymphocytes 1.1 10^3/ul (1.0-4.8); ABS Monocytes 0.4 10^3/ul (0-0.8); ABS Neutrophils 2.5 10^3/ul (1.5-7.7); ABS Nucleated RBC 0 10^3/ul; Hematocrit 41 % (35-47); Hemoglobin 13.6 g/dl (12.0-16.0); Lymphocyte % 28.2 %; Mean Corpuscular HGB Conc 33 g/dl (31-36); Mean Corpuscular Hemoglobin 29 pg (27-31); Mean Corpuscular Volume 87 fL (80-97); Mean Platelet Volume 6.6 fL (7.4-10.4); Nucleated Red Blood Cells % 0.1; Platelet Count 205 10^3/ul (150-450); Red Cell Distribution Width 13 % (10.5-15); White Blood Count 4.1 10^3/ul (3.5-10.8)
[2018-06-25 20:47] LABS: Albumin 4.7 g/dL (3.2-5.2); Albumin/Globulin Ratio 1.7 (1-3); BUN/Creatinine Ratio 13.9 (8-20); C Reactive Protein 7.79 mg/L (<8.01); Calcium 9.9 mg/dL (8.6-10.3); EGFR African American 110.3 (>60); EGFR Non-African American 91.1 (>60); Globulin 2.8 g/dL (2-4); Potassium 4.1 mmol/L (3.5-5.0); Total Bilirubin 0.5 mg/dL (0.2-1.0); Total Protein 7.5 g/dL (6.4-8.9)
[2018-06-25] MEDS ORDERED: Acetaminophen TAB* 325 MG PO PRN (23:15)
[2018-06-25] MEDS ORDERED: Lactated Ringers 1000 ML Bag* 1,000 ML IV ONE (23:20)
[2018-06-25] MEDS ORDERED: Propofol* 10 MG/ML 20 ML BTL ONE (23:26)
[2018-06-25] MEDS ORDERED: Succinylcholine* 20 MG/ML 10 ML VIAL ONE (23:26)
[2018-06-25] MEDS ORDERED: Rocuronium* 10 MG/ML VIAL ONE (23:27)
[2018-06-25] MEDS ORDERED: Lidocaine 2% PF * 5 ML VIAL ONE (23:27)
[2018-06-25] MEDS ORDERED: Buffered Lidocaine 1% SYRIN* 1 ML/SYRINGE INTRADERM ONE (23:35)
[2018-06-26] MEDS ORDERED: Lidocaine 1% MPF wEPI 200,000* 30 ML SDV ONE (00:32)
[2018-06-26] MEDS ORDERED: Thrombin 5,000 UNITS* 1 APPLIC KIT - topical use - TOPICAL ONE (00:32)
[2018-06-26] MEDS ORDERED: Bacitracin IV* 50,000 UNITS INJ ONE (00:32)
[2018-06-26] MEDS ORDERED: Gelfoam Sponge SIZE 100* SPONGE ONE (00:39)
[2018-06-26] MEDS ORDERED: Gelfoam 12-7 ADSORBABL SPONGE* 1 EA SPONGE ONE (00:39)
[2018-06-26] MEDS ORDERED: Midazolam* 1 MG/ML 2 ML VIAL (2 MG) ONE (00:52)
[2018-06-26] MEDS ORDERED: fentaNYL* 50 MCG/ML 2 ML VIAL (100 MCG VIAL) ONE (00:52)
[2018-06-26] MEDS ORDERED: ceFAZolin 2 GM PREMIX in ORs 2 GM/50 ML BAG IVPB ONE (01:03)
[2018-06-26 02:03] LABS: INR 1.06 (0.77-1.02)
[2018-06-26] MEDS ORDERED: Dexamethasone IV* 4 MG/ML 1 ML (4 MG) ONE ×2 (02:24→02:25)
[2018-06-26] MEDS ORDERED: Rocuronium* 10 MG/ML VIAL ONE (02:39)
--- NOTE | 2018-06-26 02:58 | HP ---
CC: Dr. Veronica Auguste; Dr. Montoya * HISTORY AND PHYSICAL: DATE OF ADMISSION: 06/25/18 Time of evaluation: 11 p.m. CHIEF COMPLAINT: Back pain. HISTORY OF PRESENT ILLNESS: Ms. Mcguire is a 37-year-old lady with a past medical history of obesity, hypothyroidism, depression, prior spinal surgery who presents to the emergency room with complaints of back pain and lower extremity numbness. The patient had a L5-S1 laminotomy and excision of a herniated disk in 2011. She says that she has had chronic pain since, but over this past week, the pain has become worse. She also had respiratory symptoms of nasal congestion and facial pressure. So, she went to [facility] a couple days ago where she was prescribed amoxicillin. She states that she has been trying Tylenol and ibuprofen with no significant improvement of her back pain. This morning, she noticed some numbness and "a charley horse"on her left leg. She got up from bed trying to do some stretching exercises that she learned before and she was able to go to work. The back pain that she rates at 8/10 persisted and then she started to have some numbness on her right leg and this was associated with weakness. She states that she was trying to get up from a chair and felt like she could not. She was able to but states that her feet were just "flopping around" even though she had boots on. Around 4, she went to sit down and realized that her bottom was numb and she then decided to go home, she will get ready and come to the emergency room. When she got to home, she went to the toilet and almost fell because she could not feel that she was seating down on the toilet and when she went to wipe herself, she also noticed that she had numbness around the genital area and she came to the emergency room for further evaluation. She states that when she was initially examined in the emergency room, she still had some sensation in her buttocks area as when they did a pinprick test, she could feel some of it, but it felt like "when you are numb when you go to the dentist." She said that she could also feel when the rectal exam was initially performed. During my evaluation, Dr. Montoya was also present in the room and when he did the neurological examination again, the patient said that she could not feel anything in her buttocks anymore including the rectal exam. Neurosurgery recommendation is for emergency surgery for her cauda equina syndrome and the hospitalist service will admit the patient to expedite her admission process. She denies chest pain, palpitations, shortness of breath. She states that it is harder to breathe due to the nasal congestion, but otherwise she feels well. PAST MEDICAL HISTORY: 1. Obesity with a BMI of 31. 2. Hypothyroidism. 3. Depression. 4. Status post L5-S1 laminectomy in 2011. 5. Status post breast reduction. 6. Status post in 2000 and 2007. 7. Status post jaw reconstruction for orthodontic treatment. 8. Status post cholecystectomy. 9. Status post tonsillectomy. 10. Status post bilateral tubal ligation. MEDICATIONS: 1. Amoxicillin 875 mg p.o. b.i.d. 2. Fluoxetine 20 mg p.o. at bedtime. 3. Fluticasone nasal spray 2 sprays to both nares daily. 4. Levothyroxine 50 mcg p.o. at bedtime. ALLERGIES: With CYCLOBENZAPRINE, the patient had hives. FAMILY HISTORY: There is family history of CVA and coronary artery disease. SOCIAL HISTORY: No history of tobacco, alcohol or drug abuse. Surrogate decision maker is her mother, Meera Ma, phone number is [phone]. REVIEW OF SYSTEMS: A 14-point review of systems was performed and all of the pertinent negative and positive findings are in the HPI. PHYSICAL EXAMINATION GENERAL: The patient is a pleasant young lady, lying on the ED stretcher in no acute distress. VITAL SIGNS: Temperature 98.0, heart rate is 93, respiratory rate is 15, oxygen saturation 98% on room air, blood pressure is 144/68. HEENT: Pupils are equal. Moist mucous membranes. CHEST: Breath sounds present bilaterally with no added sounds. CVS: Normal S1, S2. Regular rate and rhythm. ABDOMEN: Obese, bowel sounds are present. EXTREMITIES: No edema. NEUROLOGIC: The patient is alert and oriented x3. The neurological exam was performed by Dr. Montoya and I was present during his examination, but I did not repeat the maneuvers myself. The patient has had decreased sensation in the buttock and perineal area. As per Dr. Montoya, the rectal sphincter tone was decreased. The patient had bilateral lower extremity weakness. LABORATORY/IMAGING DATA: The patient had a CBC that showed WBC of 4.1, hemoglobin of 13.6, hematocrit of 41, platelets of 205 with 61% neutrophils. Chemistry showed a sodium of 149, potassium of 4.1, chloride of 106, bicarb of 28, BUN of 10, creatinine of 0.7, glucose of 108, calcium of 9.9. LFTs were normal. MRI of the lumbar spine showed degenerative disk disease, greatest at L4-L5. There is disk bulge with superimposed [id number] left central disc migrating extrusion contributing to severe central canal stenosis, moderate-to- severe right lateral wall recess stenosis and severe left lateral wall recess stenosis. ASSESSMENT AND PLAN: Ms. Mcguire is a 37-year-old lady with a past medical history of obesity, hypothyroidism, depression, prior L5-S1 laminotomy with chronic back pain who presented to the emergency room with worsening of her chronic back pain associated with bilateral lower extremity and perineal numbness, found to have cauda equina syndrome. 1. Cauda equina syndrome. The patient was evaluated by Neurosurgery and it is felt that she needs emergent surgery as her symptoms continue to progress. Dr. Montoya had a long conversation with the patient and her significant other and after reviewing the risks and benefits, she is agreeable to proceed with surgery. As this is an emergency procedure, no further workup is indicated, but the patient has no other complaints besides her back pain and her sinusitis at this point. Management of her cauda equina will be as per Neurosurgery. 2. Acute sinusitis. The patient states that her symptoms are already improved after she started amoxicillin and fluticasone nasal spray. We will continue this management. 3. Hypothyroidism. We will continue levothyroxine. 4. Depression. We will continue fluoxetine. 5. DVT prophylaxis. The patient has a score of 1 on the DVT Prophylaxis Risk Assessment Guide and she will be started on SCDs. 6. Code status is full code. TIME SPENT: Approximately 45 minutes was spent with patient interview, medical records review, physical examination to complete this admission, more than half of this time was spent [id number] with the patient and coordination of care. [id number]/[facility] #: [id number] SARAH BETH
[2018-06-26] MEDS ORDERED: oxyCODONE TAB* 5 MG TAB PO PRN (04:36)
[2018-06-26] MEDS ORDERED: Naloxone* 0.4 MG/ML 1 ML VIAL IV PRN (04:36)
[2018-06-26] MEDS ORDERED: DiMENhydriNATE IV* 50 MG/ML VIAL IV PUSH PRN (04:36)
[2018-06-26] MEDS ORDERED: Acetaminophen TAB* 325 MG PO PRN (04:36)
[2018-06-26] MEDS ORDERED: HYDROmorphone INJ1* 1 MG/ML SYRINGE IV PRN (04:36)
[2018-06-26] MEDS ORDERED: Neostigmine Methylsulfate* 1 MG/ML 10 ML VIAL (1 mg/ml) ONE (04:54)
[2018-06-26] MEDS ORDERED: Ondansetron INJ* 2 MG/ML VIAL ONE (04:54)
[2018-06-26] MEDS ORDERED: HYDROmorphone INJ1* 1 MG/ML SYRINGE ONE (04:54)
[2018-06-26] MEDS ORDERED: Ketorolac INJ* 30 MG/ML 1 ML VIAL ONE (04:54)
[2018-06-26] MEDS ORDERED: Glycopyrrolate IV* 0.2 MG/ML 1 ML VIAL ONE (04:54)
[2018-06-26] MEDS ORDERED: Metoclopramide IV* 5 MG/ML 2 ML VIAL ONE (04:54)
[2018-06-26] MEDS ORDERED: HYDROcodone/ACETAMIN 5-325 MG* 1 TAB PO PRN (05:49)
[2018-06-26] MEDS ORDERED: Lactated Ringers 1000 ML Bag* 1,000 ML IV SCH (06:00)
[2018-06-26] MEDS: HYDROcodone/ACETAMIN 5-325 MG* 1 TAB PO PRN ×3 (06:44→20:54)
[2018-06-26] MEDS: Levothyroxine TAB* 50 MCG TAB PO SCH (06:45)
[2018-06-26] MEDS: Fluticasone NASAL SPRAY 50MCG* 16 gm SPRAY BTL BOTH NARES SCH ×2 (09:26→14:33)
[2018-06-26] MEDS: Amoxicillin PO (*) 875 MG TAB PO SCH ×2 (09:26→20:55)
--- NOTE | 2018-06-26 10:30 | CONS ---
CONSULTATION NOTE: DATE OF CONSULT: 06/25/18 HISTORY OF PRESENT ILLNESS: The patient is a very pleasant 37-year-old female with history of hypothyroidism and status post right L5-S1 lumbar diskectomy by Dr. Millan in 2011, who presented to the emergency room with complaints of back pain radiating to the right lower extremity and loss of perianal sensation. I was requested to see the patient by the emergency room team because of patient' s complaint of loss of perianal sensation and lower extremity pain and weakness with MRI findings consistent with a large L4-5 disk herniation and significant stenosis. The patient reports that approximately one week and half ago, she started experiencing back pain, which started after putting away Gunnar decorations. The pain gradually extended to the right lower extremity and recently to the left upper thigh with numbness in the right lower extremity. The patient initially was treated conservatively. She had a recent visit to the [facility] because of a cold that runs in the family and this afternoon , she reports that she started having loss of sensation in her buttock area and having saddle anesthesia. She also had significant difficulty with ambulation, feeling significant weakness on the right lower extremity and numbness. The patient ambulates with some assistance, as she reports. She denies any urinary or GI incontinence, but she reports that cannot feel when she voids. She reports that she has loss of perianal sensation. 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 She is , lives with her who accompanies her on this visit and they have 4 children. The patient was seen in the emergency room. PAST MEDICAL HISTORY: Hypothyroidism. PAST SURGICAL HISTORY: Right L5-S1 diskectomy in 2011, uterine ablation in 2008 , C- section and tubal ligation in 2007, cholecystectomy in 2000, and C- section. Tonsillectomy, adenoidectomy, breast reduction at the age of 16, reconstructive jaw surgery at age 14. Vein surgery on the right lower extremity in 2014. ALLERGIES: The patient is allergic to FLEXERIL. FAMILY HISTORY: Noncontributory. SOCIAL HISTORY: Tobacco, negative. Alcohol, socially. Recreational use, negative. PHYSICAL EXAM: The patient is not in acute distress. She is awake, alert, and oriented x3. Her pupils are equal and reactive. Cranial nerves II through XII are grossly intact. Motor 4-5/5 in all extremities with exception of right lower extremity where knee extension and hip flexion is 4/5 while plantar flexion and dorsiflexion and EHL is 4-/5. Sensory grossly intact to light touch except decreased sensation on the right lower extremity below her knee. Deep tendon reflexes +1 bilaterally with exception of bilateral knees, which is diminished, and ankles, which is absent. The patient has no pain to palpation of the cervical, thoracic, or lumbar spine. She has free range of motion of the cervical spine. Her previous wound itself is clean and dry, healed very well. Straight leg test positive on the right. Rectal exam was performed. The patient had no rectal tone, had no ability to voluntarily contract her sphincter and had complete loss of perianal sensation. DIAGNOSTIC STUDIES/LAB DATA: The patient had MRI of her lumbar spine revealing postoperative changes from her previous laminectomy and also a large disk herniation at L4-5 mostly towards the right with a possible extruded disk fragment crossing the midline and towards the left and protruding caudally. There is also evidence of severe stenosis. ASSESSMENT: The patient is a very pleasant 37-year-old female with complaints of back pain, right lower extremity weakness and cauda equina with MRI finding consistent with some disk herniation at L4-5. PLAN: The patient at this point has evidence of cauda equina. Therefore, a surgical intervention is strongly considered and discussed with the patient regarding her clinical condition as well as MRI findings and treatment options. The patient was offered the option of surgical intervention. I also explained the expectations, limitations, and possible complications of the procedure with complications including but not limited to bleeding, infection, risk of injury to adjacent structures, coma, paralysis, , need for additional procedures, anesthesia risk, stroke, blindness, cancer, instability, additional level of disease, need for additional procedures, spinal fluid leak, need for tracheostomy or gastrostomy, injury to abdominal vessels, delayed hematoma, and loss of bladder or bowel control and anesthesia risks. The patient and her were agreeable to proceed with surgery. Informed consent was obtained. The patient and her understood that her condition may not improve and the fact it may get worse after surgery and that she may need to have additional procedure in the future and also understood that operative plan may be modified secondary to operative findings or conditions and that the procedure may be abandoned or performed in more than one stages. Informed consent was obtained. Dr. Toth kindly evaluated the patient for medical clearance and for admitting the patient. Thank you very much for allowing us to participate in the care of this patient. Please do not hesitate to contact our office in case you have any further questions or concerns regarding the care of this patient. [id number]/[facility] #: [id number] SHELBIED
--- NOTE | 2018-06-26 11:04 | OP ---
DATE OF OPERATION: 06/26/18 - ROOM #334 DATE OF : 80 SURGEON: Jay Montoya MD. ANESTHESIA: General. PRE-OP DIAGNOSIS: Degenerative disk disease L4-5, stenosis, and right L4-5 herniated nucleus pulposus with cauda equina. POST-OP DIAGNOSIS: Degenerative disk disease L4-5, stenosis, and right L4-5 herniated nucleus pulposus with cauda equina. OPERATIVE PROCEDURE: 1. The patient underwent L4 and L5 laminectomies with right L4-5 lumbar microdiskectomy. 2. Exploration of the left L4-5 disk space and bilateral foraminotomies. ESTIMATED BLOOD LOSS: 75 cc. COMPLICATIONS: None. SUMMARY: The patient is a very pleasant 37-year-old female with history of previous right L5-S1 lumbar micro-diske[place] [address] Canela who presented to the emergency room with complaints of back pain radiating to the right lower extremity with right lower extremity weakness, numbness in both lower extremities, loss of perianal sensation and physical exam consistent with cauda equina. Patient had MRI of her lumbar spine revealing severe stenosis at L4-5 with right L4-5 disk herniation with caudal protrusion of disk fragment towards the left. After explaining the different treatment options and the guarded prognosis, patient was offered the option of surgical intervention in the form of an emergency decompressive laminectomy and diskectomy. After explaining all expectations, limitations, and possible complications of the procedure with complications included but not limited to bleeding, infection, risk of injury to adjacent structures, coma, paralysis, , need for additional procedure, anesthesia risks, stroke, blindness, cancer, instability, need for additional procedure, spinal fluid leak, need for tracheostomy or gastrostomy, injury to the large vessels, loss of bladder or bowel control or inability to regain function of the bladder and bowel and anesthesia risks, patient was agreeable to proceed with surgery. Informed consent was obtained. The patient's was present during the conversation and was also agreeable with the plan. Patient understood that her condition may not improve and in fact may get worse after surgery and that she may need to have additional procedures in the future. She also understood that the operative plan may be modified according to intraoperative findings and conditions and that the case may be abandoned or done in more than 1 stage. DESCRIPTION OF PROCEDURE: The patient was brought to the operating room, was placed under general anesthesia by the anesthesia team. Of note, the patient voided prior to the procedure once in the emergency room and once in the preanesthesia area. At that time, she was not feeling her urine coming out. A Gold was placed under anesthesia and 750 cc of urine was found to be in the bladder. Patient was then positioned prone on the Neri frame on a Jax table and all bony prominences were meticulously padded. Her skin was prepped and draped in the standard fashion. After appropriate surgical pause and patient identification, an incision was marked on the skin over the L4 and L5 levels. The previous incision was also incorporated in the new incision and the skin was infiltrated with local anesthetic and incised with #10 surgical blade. The incision was carried down to the dorsal fascia with the use of Bovie cautery. Self retaining retractors were brought into the field. The dorsal fascia was divided on both sides of the midline with the use of Bovie cautery and the paraspinal musculature was elevated in a subperiosteal fashion with the use of periosteal elevators and Bovie cautery. Intraoperative fluoroscopic imaging confirmed appropriate surgical levels and then laminectomy of L4 and partial laminectomy of L5 was performed with the use of Leksell rongeurs, Kerrison punches and a high speed drill. During decompression, significant amount of compression was found especially at the L4-5 level causing significant canal stenosis and abundant ligamentum flavum hypertrophy was encountered. After decompression, foraminotomies were performed bilaterally and operative microscope was brought into the field. After fluoroscopic confirmation of appropriate surgical level at L4-5, the thecal sac and the nerve root on the right side, was gently retracted medially with a nerve root retractor and a significant protrusion was found under the posterior longitudinal ligament which was incised with #10 surgical blade. A standard diskectomy was performed with use of pituitary rongeurs. Of note, significant extension of the herniated disk was found to cross the midline towards the left side under the posterior longitudinal ligament, as was expected from the MRI of the lumbar spine. All disk fragments were removed and the thecal sac and nerve root was found to be free of any pressure phenomenon. The left L4-5 disk space was also explored and the thecal sac and nerve root was found to be free of any pressure phenomenon. No significant protrusions were found at that level. After completion of the foraminotomies, the nerve roots and thecal sac was found to be free of any pressure phenomenon. After copious irrigation and confirmation of meticulous hemostasis, and meticulous inspection of the wound, the self retaining retractors were removed from the field and the wound was closed by layers over a #7 SHERICE drain which was tunneled through a separate stab wound incision. Interrupted 0 Vicryl sutures were used to approximate the dorsal fascia while the subcutaneous tissue was approximated with 2-0 inverted interrupted Vicryl sutures. The skin was covered with Dermabond and sterile dressing. At the end of the procedure, all counts were reported to be correct. The patient remained hemodynamically stable throughout the case. She was then turned supine, was extubated and transferred to Recovery in excellent condition. Please note, the case was done as an emergency because of patient's presentation with acute cauda equina. [id number]/[facility] #: [id number] MTDD
[2018-06-26] MEDS: Ondansetron ODT TAB* 4 MG PO PRN (12:21)
--- NOTE | 2018-06-26 17:32 | PN ---
Subjective Date of Service: 06/26/18 Interval History: Late entry, pt was seen at approximately 1400 today. She states that she is feeling okay today. She discussed the events that lead to her hospitalization, and states that she has regained feeling in her R thigh. She continues to have numbness in the R foot and R gluteal region. She c/o slight sinus pressure, but states that it is better than previously, and she no longer has watery discharge coming from the right eye. She denies CP, SOB, further loss of sensation, abdominal pain, n/v/d, fever, chills, incontinence of bowel. She currently has a catheter in place. Objective Active Medications: Acetaminophen (Tylenol Tab*) 650 mg PO Q6H PRN Hydrocodone Bitart/Acetaminophen ([place] 5-325 Tab*) 1 tab PO Q4H PRN Hydrocodone Bitart/Acetaminophen ([place] 5-325 Tab*) 2 tab PO Q4H PRN Amoxicillin (Amoxicillin Po (*)) 875 mg PO BID DANISH Fluoxetine HCl (Prozac Cap*) 20 mg PO BEDTIME DANISH Fluticasone Propionate (Flonase Nasal [place] 50mcg*) 2 spray BOTH NARES DAILY DANISH Lactated Ringer's (Lactated Ringers 1000 Ml Bag*) 1,000 mls @ 125 mls/hr IV PER RATE DANISH Levothyroxine Sodium (Synthroid Tab*) 50 mcg PO 0600 DANISH Ondansetron HCl (Zofran Odt Tab*) 4 mg PO Q6H PRN Vital Signs: Temp Pulse Resp BP Pulse Ox 97.7 F 69 18 112/57 97 06/26/18 08:59 06/26/18 10:31 06/26/18 14:31 06/26/18 10:31 06/26/18 10:31 Oxygen Devices in Use Now: Nasal Cannula Appearance: Pt is sleeping when I arrived. She is easily roused; she appears to be in no acute distress and is pleasant and cooperative Eyes: No Scleral Icterus, PERRLA Ears/Nose/Mouth/Throat: NL Teeth, Lips, Gums, Mucous Membranes Moist, - - Maxillary sinuses slightly TTP R>L; frontal sinuses nontender Neck: NL Appearance and Movements; NL JVP, Trachea Midline Respiratory: Symmetrical Chest Expansion and Respiratory Effort, Clear to Auscultation Cardiovascular: NL Sounds; No Murmurs; No JVD, RRR, No Edema Abdominal: NL Sounds; No Tenderness; No Distention, No Hepatosplenomegaly Extremities: No Edema, No Clubbing, Cyanosis Neurological: Alert and Oriented x 3, - - Lacking sensation in R foot; sensation intact in b/l UE and LLE Result Diagrams: 06/25/18 20:22 06/25/18 20:22 Assess/Plan/Problems-Billing Assessment: Pt is a 37yof with a PMHx of obesity, hypothyroidism, depression who has acute sinusitis and has been admitted for cauda equina syndrome. Dr. Montoya is following as well; he performed a L4, L5 laminectomy and R L4, L5 microdiskectomy on day of admission. - Patient Problems (1) Cauda equina syndrome Comment: -Management per Dr. Montoya (2) Sinusitis Comment: -Decrease in sinus pain and pressure -Continue Amoxicillin, Fluticasone (3) Hypothyroid Comment: -Continue Levothyroxine (4) Depression Comment: -Continue Fluoxetine (5) Full code status
[2018-06-26] MEDS: FLUoxetine CAP* 20 MG PO SCH (20:55)
[2018-06-27] MEDS: HYDROcodone/ACETAMIN 5-325 MG* 1 TAB PO PRN ×5 (05:21→23:53)
[2018-06-27] MEDS: Levothyroxine TAB* 50 MCG TAB PO SCH (05:22)
[2018-06-27] MEDS: Fluticasone NASAL SPRAY 50MCG* 16 gm SPRAY BTL BOTH NARES SCH (09:34)
[2018-06-27] MEDS: Amoxicillin PO (*) 875 MG TAB PO SCH ×2 (09:34→20:08)
--- NOTE | 2018-06-27 15:57 | PN ---
Subjective Date of Service: 06/27/18 Interval History: Ms. Mcguire is feeling ok today. She reports that she feels her pain is slightly worse today compared to yesterday, though she has been more ambulatory today. She reported 6/10 lumbar pain on my exam. She feels as though her current pain medications are helpful in making the pain manageable. She has some postnasal drip since starting Flonase. She is slightly concerned about her ability to function at home, particularly with stairs. She continues to have saddle anesthesia and some decreased sensation to the right foot. She has not moved her bowels. She is able to tell when she needs to urinate, but has little sensation while urinating. She denies CP, SOB, N/V. Family History: Unchanged from Admission Social History: Unchanged from Admission Past Medical History: Unchanged from Admission Objective Active Medications: Acetaminophen (Tylenol Tab*) 650 mg PO Q6H PRN pain/fever Hydrocodone Bitart/Acetaminophen ([place] 5-325 Tab*) 1 tab PO Q4H PRN moderate pain Hydrocodone Bitart/Acetaminophen ([place] 5-325 Tab*) 2 tab PO Q4H PRN marked pain Amoxicillin (Amoxicillin Po (*)) 875 mg PO BID DANISH Fluoxetine HCl (Prozac Cap*) 20 mg PO BEDTIME DANISH Fluticasone Propionate (Flonase Nasal [place] 50mcg*) 2 spray BOTH NARES DAILY DANISH Lactated Ringer's (Lactated Ringers 1000 Ml Bag*) 1,000 mls @ 125 mls/hr IV PER RATE DANISH Levothyroxine Sodium (Synthroid Tab*) 50 mcg PO 0600 DANISH Ondansetron HCl (Zofran Odt Tab*) 4 mg PO Q6H PRN NAUSEA Vital Signs - 8 hr 06/27/18 06/27/18 06/27/18 08:00 08:12 08:15 Temperature 98.6 F Pulse Rate 73 Respiratory 18 16 18 Rate Blood Pressure 126/66 (mmHg) O2 Sat by Pulse 92 Oximetry 06/27/18 06/27/18 06/27/18 09:34 11:22 12:05 Temperature 97.5 F Pulse Rate 58 Respiratory 18 16 16 Rate Blood Pressure 126/68 (mmHg) O2 Sat by Pulse 99 Oximetry Oxygen Devices in Use Now: None Appearance: Middle aged female sitting in bed in NAD Eyes: No Scleral Icterus Ears/Nose/Mouth/Throat: Mucous Membranes Moist Neck: NL Appearance and Movements; NL JVP, Trachea Midline Respiratory: Symmetrical Chest Expansion and Respiratory Effort, Clear to Auscultation Cardiovascular: NL Sounds; No Murmurs; No JVD, RRR Abdominal: NL Sounds; No Tenderness; No Distention Extremities: No Edema Skin: - - Surigcal dressing intact to lumbar spine with SHERICE drain in place Neurological: Alert and Oriented x 3, - - Saddle anesthesia; Decreased sensation to right foot Lines/Tubes/Other Access: Clean, Dry and Intact Peripheral IV Nutrition: Taking PO's Result Diagrams: 06/25/18 20:22 06/25/18 20:22 Assess/Plan/Problems-Billing Assessment: Ms. Mcguire is a 37yof with a PMHx of obesity, hypothyroidism, depression who has acute sinusitis and has been admitted for cauda equina syndrome. Dr. Montoya is following as well; he performed a L4, L5 laminectomy and R L4, L5 microdiskectomy on day of admission. - Patient Problems (1) Cauda equina syndrome Code(s): G83.4 - CAUDA EQUINA SYNDROME Comment: - POD 1 L4-L5 laminectomy and microdiskectomy - Continues to have saddle anesthesia and decreased sensation to the right foot - Management per Neurosurgery (2) Sinusitis Current Visit: Yes Status: Acute Code(s): J32.9 - CHRONIC SINUSITIS, UNSPECIFIED SNOMED Code(s): 14608623 Comment: - Symptoms improving - Continue amoxicillin (day 4/5), fluticasone (3) Depression Code(s): F32.9 - MAJOR DEPRESSIVE DISORDER, SINGLE EPISODE, UNSPECIFIED Comment: - Continue Fluoxetine (4) Hypothyroid Code(s): E03.9 - HYPOTHYROIDISM, UNSPECIFIED Comment: - Continue Levothyroxine (5) DVT prophylaxis Comment: - SCDs (6) Full code status Code(s): Z78.9 - OTHER SPECIFIED HEALTH STATUS Comment: Status and Disposition: Inpatient for acute postop period. Anticipate d/c home when medically stable and cleared by Neurosurgery. Attending: Kalen Bustos
[2018-06-27] MEDS: Docusate CAP* 100 MG PO SCH (20:06)
[2018-06-27] MEDS: FLUoxetine CAP* 20 MG PO SCH (20:06)
[2018-06-28] MEDS: HYDROcodone/ACETAMIN 5-325 MG* 1 TAB PO PRN ×5 (04:11→22:22)
[2018-06-28] MEDS: Levothyroxine TAB* 50 MCG TAB PO SCH (06:12)
[2018-06-28] MEDS: Docusate CAP* 100 MG PO SCH ×2 (08:06→20:39)
[2018-06-28] MEDS: Fluticasone NASAL SPRAY 50MCG* 16 gm SPRAY BTL BOTH NARES SCH (09:40)
[2018-06-28] MEDS: Amoxicillin PO (*) 875 MG TAB PO SCH ×2 (09:40→20:38)
[2018-06-28] MEDS: Polyethylene Glycol 3350* 17 GM PACKET PO PRN (13:20)
--- NOTE | 2018-06-28 14:51 | PN ---
Subjective Date of Service: 06/28/18 Interval History: Ms. Mcguire is feeling slightly lethargic today. She has been sleeping a lot, but she also reports that she has been more ambulatory today. She was able to work with PT on stairs today. She is still requiring a RW to maintain balance during ambulation d/t decreased sensation of right foot. She reported some vaginal burning today, but only when there is pressure on the area when sitting in certain positions. She still has not had a BM and is nervous to move her bowels d/t decreased sensation to her rectum and buttocks. She denies N/V. Appetite improving. Family History: Unchanged from Admission Social History: Unchanged from Admission Past Medical History: Unchanged from Admission Objective Active Medications: Acetaminophen (Tylenol Tab*) 650 mg PO Q6H PRN pain/fever Hydrocodone Bitart/Acetaminophen ([place] 5-325 Tab*) 1 tab PO Q4H PRN moderate pain Hydrocodone Bitart/Acetaminophen ([place] 5-325 Tab*) 2 tab PO Q4H PRN marked pain Amoxicillin (Amoxicillin Po (*)) 875 mg PO BID DANISH Docusate Sodium (Colace Cap*) 200 mg PO BID DANISH Fluoxetine HCl (Prozac Cap*) 20 mg PO BEDTIME DANISH Fluticasone Propionate (Flonase Nasal [place] 50mcg*) 2 spray BOTH NARES DAILY DANISH Levothyroxine Sodium (Synthroid Tab*) 50 mcg PO 0600 DANISH Magnesium Hydroxide (Milk Of Magnesia Liq*) 30 ml PO Q6H PRN CONSTIPATION Ondansetron HCl (Zofran Odt Tab*) 4 mg PO Q6H PRN NAUSEA Polyethylene Glycol/Electrolytes (Miralax*) 17 gm PO DAILY PRN CONSTIPATION Vital Signs - 8 hr 06/28/18 06/28/18 06/28/18 07:37 07:41 08:00 Temperature 98.1 F Pulse Rate 93 Respiratory 16 16 18 Rate Blood Pressure 151/78 (mmHg) O2 Sat by Pulse 97 Oximetry 06/28/18 06/28/18 06/28/18 08:06 10:33 11:25 Temperature 98.0 F Pulse Rate 87 Respiratory 18 18 16 Rate Blood Pressure 116/59 (mmHg) O2 Sat by Pulse 98 Oximetry Oxygen Devices in Use Now: None Appearance: Middle-aged female sitting in chair in NAD Eyes: No Scleral Icterus Ears/Nose/Mouth/Throat: Mucous Membranes Moist Neck: NL Appearance and Movements; NL JVP, Trachea Midline Respiratory: Symmetrical Chest Expansion and Respiratory Effort, Clear to Auscultation Cardiovascular: NL Sounds; No Murmurs; No JVD, RRR Abdominal: NL Sounds; No Tenderness; No Distention Extremities: No Edema Skin: No Rash or Ulcers, - - Surgical dressing to lumbar spine with a small amount of dried blood Neurological: Alert and Oriented x 3, - - Decreased sensation to right foot and groin/buttocks Lines/Tubes/Other Access: Clean, Dry and Intact Peripheral IV Nutrition: Taking PO's Result Diagrams: 06/25/18 20:22 06/25/18 20:22 Assess/Plan/Problems-Billing Assessment: Ms. Mcguire is a 37yof with a PMHx of obesity, hypothyroidism, depression who has acute sinusitis and has been admitted for cauda equina syndrome. Dr. Montoya is following as well; he performed a L4, L5 laminectomy and R L4, L5 microdiskectomy on day of admission. - Patient Problems (1) Cauda equina syndrome Code(s): G83.4 - CAUDA EQUINA SYNDROME Comment: - POD 2 L4-L5 laminectomy and microdiskectomy - Continues to have saddle anesthesia and decreased sensation to the right foot - Management per Neurosurgery - Continue Percocet and bowel regimen (2) Sinusitis Code(s): J32.9 - CHRONIC SINUSITIS, UNSPECIFIED Comment: - Symptoms improving - Continue fluticasone; d/c amoxicillin today (day 5/5) (3) Depression Code(s): F32.9 - MAJOR DEPRESSIVE DISORDER, SINGLE EPISODE, UNSPECIFIED Comment: - Continue fluoxetine (4) Hypothyroid Code(s): E03.9 - HYPOTHYROIDISM, UNSPECIFIED Comment: - Continue levothyroxine (5) DVT prophylaxis Comment: - SCDs (6) Full code status Code(s): Z78.9 - OTHER SPECIFIED HEALTH STATUS Comment: Status and Disposition: Inpatient for acute postop period. Anticipate d/c home when medically stable and cleared by Neurosurgery, possibly Friday. Attending: Kalen Bustos
[2018-06-28] MEDS: FLUoxetine CAP* 20 MG PO SCH (20:39)
[2018-06-29] MEDS: Ondansetron ODT TAB* 4 MG PO PRN (02:46)
[2018-06-29] MEDS: HYDROcodone/ACETAMIN 5-325 MG* 1 TAB PO PRN ×3 (05:20→21:15)
[2018-06-29] MEDS: Levothyroxine TAB* 50 MCG TAB PO SCH (05:20)
[2018-06-29 06:09] LABS: ABS Basophils 0 10^3/ul (0-0.2); ABS Eosinophils 0 10^3/ul (0-0.6); ABS Lymphocytes 1.2 10^3/ul (1.0-4.8); ABS Monocytes 0.6 10^3/ul (0-0.8); ABS Neutrophils 3.8 10^3/ul (1.5-7.7); ABS Nucleated RBC 0 10^3/ul; Eosinophil % 0.8 %; Hematocrit 37 % (35-47); Hemoglobin 12.4 g/dl (12.0-16.0); Lymphocyte % 21.1 %; Mean Corpuscular HGB Conc 33 g/dl (31-36); Mean Corpuscular Hemoglobin 29 pg (27-31); Mean Corpuscular Volume 87 fL (80-97); Mean Platelet Volume 6.6 fL (7.4-10.4); Nucleated Red Blood Cells % 0; Platelet Count 194 10^3/ul (150-450); Red Blood Count 4.29 10^6/ul (4.00-5.40); Red Cell Distribution Width 12 % (10.5-15); White Blood Count 5.6 10^3/ul (3.5-10.8)
[2018-06-29 06:30] LABS: BUN/Creatinine Ratio 20.3 (8-20); Calcium 9.5 mg/dL (8.6-10.3); EGFR African American 106.9 (>60); EGFR Non-African American 88.3 (>60); Potassium 4.4 mmol/L (3.5-5.0)
[2018-06-29] MEDS: Magnesium Hydroxide LIQ* 30 ML UDC PO PRN (08:26)
[2018-06-29] MEDS: Docusate CAP* 100 MG PO SCH ×2 (08:28→21:15)
[2018-06-29] MEDS: Fluticasone NASAL SPRAY 50MCG* 16 gm SPRAY BTL BOTH NARES SCH ×2 (08:28→13:02)
[2018-06-29] MEDS: Polyethylene Glycol 3350* 17 GM PACKET PO PRN (13:02)
--- NOTE | 2018-06-29 17:29 | PN ---
Subjective Date of Service: 06/29/18 Interval History: Ms. Mcguire is feeling slightly better today. She has a bit more energy. She has been up ambulating, but feels like she has an impending BM and has some discomfort with ambulation. Using bowel regimen, but is fearful of diarrhea d/t decreased sensation. She felt she had a productive session with PT today. She denies CP, SOB, N/V. Family History: Unchanged from Admission Social History: Unchanged from Admission Past Medical History: Unchanged from Admission Objective Active Medications: Acetaminophen (Tylenol Tab*) 650 mg PO Q6H PRN pain/fever Hydrocodone Bitart/Acetaminophen ([place] 5-325 Tab*) 1 tab PO Q4H PRN moderate pain Hydrocodone Bitart/Acetaminophen ([place] 5-325 Tab*) 2 tab PO Q4H PRN marked pain Docusate Sodium (Colace Cap*) 200 mg PO BID DANISH Fluoxetine HCl (Prozac Cap*) 20 mg PO BEDTIME DANISH Fluticasone Propionate (Flonase Nasal [place] 50mcg*) 2 spray BOTH NARES DAILY DANISH Levothyroxine Sodium (Synthroid Tab*) 50 mcg PO 0600 DANISH Magnesium Hydroxide (Milk Of Magnesia Liq*) 30 ml PO Q6H PRN CONSTIPATION Ondansetron HCl (Zofran Odt Tab*) 4 mg PO Q6H PRN NAUSEA Polyethylene Glycol/Electrolytes (Miralax*) 17 gm PO DAILY PRN CONSTIPATION Vital Signs - 8 hr 06/29/18 06/29/18 06/29/18 11:18 13:02 15:28 Temperature 97.9 F 97.5 F Pulse Rate 85 84 Respiratory 17 18 18 Rate Blood Pressure 126/79 122/77 (mmHg) O2 Sat by Pulse 99 97 Oximetry Oxygen Devices in Use Now: None Appearance: Middle-aged female laying in bed in NAD Eyes: No Scleral Icterus Ears/Nose/Mouth/Throat: Mucous Membranes Moist Neck: NL Appearance and Movements; NL JVP, Trachea Midline Respiratory: Symmetrical Chest Expansion and Respiratory Effort, Clear to Auscultation Cardiovascular: NL Sounds; No Murmurs; No JVD, RRR Abdominal: NL Sounds; No Tenderness; No Distention Extremities: No Edema Skin: - - Surgical dressing and SHERICE drain to lumbar spine Neurological: Alert and Oriented x 3, - - Decreased sensation to RLE and saddle anesthesia Lines/Tubes/Other Access: Clean, Dry and Intact Peripheral IV Nutrition: Taking PO's Result Diagrams: 06/29/18 05:53 06/29/18 05:53 Assess/Plan/Problems-Billing Assessment: Ms. Mcguire is a 37yof with a PMHx of obesity, hypothyroidism, depression who has acute sinusitis and has been admitted for cauda equina syndrome. Dr. Montoya is following as well; he performed a L4, L5 laminectomy and R L4, L5 microdiskectomy on day of admission. - Patient Problems (1) Cauda equina syndrome Code(s): G83.4 - CAUDA EQUINA SYNDROME Comment: - POD 3 L4-L5 laminectomy and microdiskectomy - Continues to have saddle anesthesia and decreased sensation to the right foot - Management per Neurosurgery - PT/OT - Continue Percocet and bowel regimen (2) Sinusitis Code(s): J32.9 - CHRONIC SINUSITIS, UNSPECIFIED Comment: - Symptoms mostly resolved (3) Depression Code(s): F32.9 - MAJOR DEPRESSIVE DISORDER, SINGLE EPISODE, UNSPECIFIED Comment: - Continue fluoxetine (4) Hypothyroid Code(s): E03.9 - HYPOTHYROIDISM, UNSPECIFIED Comment: - Continue levothyroxine (5) DVT prophylaxis Comment: - SCDs (6) Full code status Code(s): Z78.9 - OTHER SPECIFIED HEALTH STATUS Comment: Status and Disposition: Inpatient for acute postop period. Possible d/c to PMRU, otherwise d/c home when medically stable and cleared by Neurosurgery. Attending: Luca Minor
[2018-06-29] MEDS: FLUoxetine CAP* 20 MG PO SCH (21:15)
[2018-06-30] MEDS: Levothyroxine TAB* 50 MCG TAB PO SCH (06:13)
[2018-06-30] MEDS: HYDROcodone/ACETAMIN 5-325 MG* 1 TAB PO PRN ×3 (06:14→18:55)
--- NOTE | 2018-06-30 08:55 | PN ---
Progress Note - Progress Note Date of Service: 06/30/18 SOAP: Subjective: [S/p L4-5 decompressive laminectomy, discectomy right and foraminotomy right, POD#4. Complains of low back pain and soreness, controlled with PO meds. Ambulating well, working with PT on stairs Voiding without difficulty No BM since 06/26, bowel regimen ordered Eating and drinking well Reports improvement in LE strength and sensation post-op Denies headache, nausea] Objective: [ Vital Signs: Temp Pulse Resp BP Pulse Ox 97.3 F 93 16 137/82 98 06/30/18 08:03 06/30/18 08:03 06/30/18 08:03 06/30/18 08:03 06/30/18 08:03 General: Alert and sitting up in bed, NAD Neuro: Motor intact, sensation remains diminished. Incision: Intact and without swelling, erythema, warmth. Drain dc today without complication. Wound drain output 06/26/18 06/26/18 06/26/18 05:28 06:41 10:47 Output, SHERICE #1 30 35 50 06/26/18 06/26/18 06/26/18 13:53 19:27 22:04 Output, SHERICE #1 30 50 20 06/27/18 06/27/18 06/27/18 01:26 05:22 11:51 Output, SHERICE #1 10 15 30 06/27/18 06/27/18 06/28/18 15:46 21:24 02:00 Output, SHERICE #1 15 20 12 06/28/18 06/28/18 06/28/18 06:40 10:00 14:20 Output, SHERICE #1 20 10 8 06/28/18 06/29/18 06/29/18 20:26 02:45 05:52 Output, SHERICE #1 10 8 8 06/29/18 06/29/18 06/30/18 14:00 22:00 04:07 Output, SHERICE #1 5 10 5 ] Assessment: [Satisfactory postop] Plan: [1. Encourage ambulation 2. PT, work on stairs 3. Possible dc home today with bed and commode from [facility] ]
[2018-06-30] MEDS: Polyethylene Glycol 3350* 17 GM PACKET PO PRN (09:50)
[2018-06-30] MEDS: Fluticasone NASAL SPRAY 50MCG* 16 gm SPRAY BTL BOTH NARES SCH (09:50)
[2018-06-30] MEDS: Docusate CAP* 100 MG PO SCH ×2 (09:50→21:25)
[2018-06-30] MEDS: Magnesium Hydroxide LIQ* 30 ML UDC PO PRN ×2 (09:50→21:25)
--- NOTE | 2018-06-30 16:08 | PN ---
Subjective Date of Service: 06/30/18 Interval History: Ms. Mcguire is feeling better today. She has been working on stairs using crutches with PT. She is still nervous about going home, but feels as though as long as she has a hospital bed, she will be able to manage. Numbness is unchanged. Appetite is good. She denies CP, SOB, N/V. Family History: Unchanged from Admission Social History: Unchanged from Admission Past Medical History: Unchanged from Admission Objective Active Medications: Acetaminophen (Tylenol Tab*) 650 mg PO Q6H PRN pain/fever Hydrocodone Bitart/Acetaminophen ([place] 5-325 Tab*) 1 tab PO Q4H PRN moderate pain Hydrocodone Bitart/Acetaminophen ([place] 5-325 Tab*) 2 tab PO Q4H PRN marked pain Docusate Sodium (Colace Cap*) 200 mg PO BID DANISH Fluoxetine HCl (Prozac Cap*) 20 mg PO BEDTIME DANISH Fluticasone Propionate (Flonase Nasal [place] 50mcg*) 2 spray BOTH NARES DAILY DANISH Levothyroxine Sodium (Synthroid Tab*) 50 mcg PO 0600 DANISH Magnesium Hydroxide (Milk Of Magnesia Liq*) 30 ml PO Q6H PRN CONSTIPATION Ondansetron HCl (Zofran Odt Tab*) 4 mg PO Q6H PRN NAUSEA Polyethylene Glycol/Electrolytes (Miralax*) 17 gm PO DAILY PRN CONSTIPATION Vital Signs - 8 hr 06/30/18 06/30/18 06/30/18 08:10 11:47 11:57 Temperature 97.5 F Pulse Rate 95 Respiratory 18 18 16 Rate Blood Pressure 128/72 (mmHg) O2 Sat by Pulse 100 Oximetry Oxygen Devices in Use Now: None Appearance: Middle-aged female sitting in bed in NAD Eyes: No Scleral Icterus Ears/Nose/Mouth/Throat: Mucous Membranes Moist Neck: NL Appearance and Movements; NL JVP, Trachea Midline Respiratory: Symmetrical Chest Expansion and Respiratory Effort, Clear to Auscultation Cardiovascular: NL Sounds; No Murmurs; No JVD, RRR Abdominal: NL Sounds; No Tenderness; No Distention Extremities: No Edema Skin: - - Surgical dressing intact to lumbar spine Neurological: Alert and Oriented x 3 Lines/Tubes/Other Access: Clean, Dry and Intact Peripheral IV Nutrition: Taking PO's Result Diagrams: 06/29/18 05:53 06/29/18 05:53 Assess/Plan/Problems-Billing Assessment: Ms. Mcguire is a 37yof with a PMHx of obesity, hypothyroidism, depression who has acute sinusitis and has been admitted for cauda equina syndrome. Dr. Montoya is following as well; he performed a L4, L5 laminectomy and R L4, L5 microdiskectomy on day of admission. - Patient Problems (1) Cauda equina syndrome Code(s): G83.4 - CAUDA EQUINA SYNDROME Comment: - POD 4 L4-L5 laminectomy and microdiskectomy - Continues to have saddle anesthesia and decreased sensation to the right foot - Management per Neurosurgery - PT/OT - Continue Percocet and bowel regimen (2) Sinusitis Code(s): J32.9 - CHRONIC SINUSITIS, UNSPECIFIED Comment: - Symptoms mostly resolved (3) Depression Code(s): F32.9 - MAJOR DEPRESSIVE DISORDER, SINGLE EPISODE, UNSPECIFIED Comment: - Continue fluoxetine (4) Hypothyroid Code(s): E03.9 - HYPOTHYROIDISM, UNSPECIFIED Comment: - Continue levothyroxine (5) DVT prophylaxis Comment: - SCDs (6) Full code status Code(s): Z78.9 - OTHER SPECIFIED HEALTH STATUS Comment: Status and Disposition: Inpatient for acute postop period. Stable for d/c home today, but [facility] [place] is not able to deliver hospital bed today. Will plan for d/c tomorrow morning. Attending: Luca Minor
[2018-06-30] MEDS: FLUoxetine CAP* 20 MG PO SCH (21:25)
[2018-07-01] MEDS: Levothyroxine TAB* 50 MCG TAB PO SCH (06:16)
[2018-07-01] MEDS: Docusate CAP* 100 MG PO SCH (07:38)
[2018-07-01] MEDS: HYDROcodone/ACETAMIN 5-325 MG* 1 TAB PO PRN ×2 (08:11→13:28)
[2018-07-01] MEDS: Fluticasone NASAL SPRAY 50MCG* 16 gm SPRAY BTL BOTH NARES SCH (08:21)
[2018-07-01 17:27] VITALS: BP 106/59
--- NOTE | 2018-07-01 20:34 | DS ---
CC: Dr. Veronica Auguste; Dr. Jay Montoya * DISCHARGE SUMMARY: DATE OF ADMISSION: 06/26/18 DATE OF DISCHARGE: 07/01/18 PRIMARY CARE PROVIDER: Dr. Veronica Auguste. NEUROSURGEON: Dr. Jay Montoya. ATTENDING PHYSICIAN: Dr. Josefa Cobb * (dictated by Leana Solorio NP). PRIMARY DIAGNOSES: 1. Cauda equina syndrome, status post L4-L5 decompressive laminectomy, diskectomy, and foraminotomy. 2. Sinusitis. SECONDARY DIAGNOSES: 1. Depression. 2. Hypothyroidism. STUDIES WHILE IN THE HOSPITAL: Lumbar spine MRI on 06/25/18 reads as degenerative disk disease, greatest at L4-L5. There is disk bulge with superimposed moderate-to- large left central caudally migrating extrusion contributing to severe central canal stenosis, [id number] right lateral recess stenosis, and severe left lateral recess stenosis. Surgical consultation may be considered. Additional findings described in the body of the report. HISTORY OF PRESENT ILLNESS AND HOSPITAL COURSE: Ms. Mcguire is a 37-year-old female with past medical history of depression, hypothyroidism, and L5-S1 laminectomy in 2011, who presented to the emergency room on 06/25/18 with complaints of back pain. Please see the history and physical by Dr. Gomez, for a complete summary of the events leading up to this hospitalization. In short, the patient has had chronic back pain, but over the past week, the pain has been worsening. On the day she presented to the emergency room, she noted some numbness and muscle spasms in her left leg. Pain persisted at 8/10 and she began experiencing right leg numbness and weakness. Later in the day, she sat down when she noticed her buttocks was numb and so she presented to the emergency room. In the emergency room, the patient initially had some sensation in her buttocks during a pinprick test, although later on when Dr. Montoya was evaluating the patient, she had lost all sensation in her buttocks including her rectum. Neurosurgery took the patient for emergency surgery for cauda equina syndrome and she was admitted by the hospitalist service. On 06/26/18, the patient underwent L4 and L5 laminectomies with right L4-L5 lumbar microdiskectomy and exploration of the left L4-L5 disk space and bilateral foraminotomies. The surgery was uneventful and the patient recovered well. The patient continued to have pain after surgery, which was moderately well managed with Percocet. She did continue to experience right lower extremity saddle anesthesia, which improved daily. She has been able to urinate appropriately and has not been incontinent. She has been somewhat constipated and has not been able to have a bowel movement, though was hesitant to take any laxatives due to her decreased sensation. She has been able to ambulate with a walker or crutches. She has been seen by Physical Therapy. They have been working with her on stairs as the patient does have stairs at home. On 06/30/18, Physical Therapy noted that she was safe ambulating with crutches and that she would need followup with outpatient physical therapy. Vital signs and labs have remained stable. I will note that the patient was diagnosed with acute sinusitis prior to admission and so she was continued on amoxicillin to complete a 5-day course. Sinusitis symptoms at this point have resolved. Although, the patient continues to have some decreased sensation, she is anxious to return home and feels as though she will be able to manage as long as she is provided with a hospital bed. Case Management has been involved and [facility] will be delivering a hospital bed. The patient was seen by Neurosurgery on 06/30/18 and at that point, they noted that the patient was stable for discharge home with outpatient followup with Neurosurgery. Ms. Mcguire is stable for discharge today. Vital signs are as follows: Temp 98.1, heart rate 84, respiratory rate 18, oxygen saturation 97% on room air, blood pressure 124/80. DISCHARGE MEDICATIONS: New medications: 1. Hydrocodone/acetaminophen 5/325 mg 1 tab p.o. q.4 hours p.r.n. pain. 2. Ondansetron ODT 4 mg sublingual q.4 hours p.r.n. nausea. 3. Acetaminophen 650 mg p.o. q.4 hours p.r.n. pain. 4. Docusate 200 mg p.o. b.i.d. 5. Milk of mag 30 mL p.o. q.6 hours p.r.n. constipation. 6. MiraLAX 17 g p.o. daily p.r.n. constipation. Continued medications: 1. Fluoxetine 20 mg p.o. at bedtime. 2. Fluticasone nasal spray 2 sprays both nares daily. 3. Levothyroxine 50 mcg p.o. daily. Discontinued medication: Amoxicillin. DISCHARGE PLAN: Ms. Mcguire will be discharged home. Activity per Neurosurgery will be no driving, no lifting heavier than a coffee cup, no prolonged sitting, recliner is okay, walking and stairs are okay; if activity causes pain, stop. No bending. Diet will be regular as tolerated. Medications are noted above. The patient has been prescribed a 7-day course of Blanch for pain control. Further pain management will be deferred to Neurosurgery or her primary care provider. She can continue her other usual medications and she should use laxatives and stool softeners as noted above. Wound care per Neurosurgery is keeping wound dry for 3 days, daily dressing change as needed, do not soak in bath, hot tub, etc. The patient has been provided with 2 work releases as she has 2 jobs. She should follow up with her primary care provider in 4 to 7 days. She will need to follow up with Neurosurgery in 7 to 10 days. She has been advised to return to the emergency room for any worsening of symptoms, shortness of breath, lightheadedness, dizziness, chest discomfort, high fevers, chills, night sweats, loss of consciousness, or any other worrisome signs or symptoms. This is a summarized report of a complex medical history and hospital stay. For further details, please see the entire medical record. TIME SPENT: Approximately 40 minutes was spent on this discharge. LEANA SOLORIO NP [id number]/[facility] #: [id number] SARAH BETH
== END 2018-07-01 19:05 | disposition home or self-care (01) | DRG 310 ==
LOC: ED 17:54 → OR 06-26 02:45 → SSU 06-26 06:30
PROVIDERS: ADMIT Internal Medicine; ATTEND Internal Medicine
PROC: 0ST20ZZ Resection of Lumbar Vertebral Disc, Open Approach (ICD-10-PCS; 2018-06-26)
PROC: 01NB0ZZ Release Lumbar Nerve, Open Approach (ICD-10-PCS; principal; 2018-06-26 00:51)
DX: M51.26 Other intervertebral disc displacement, lumbar region (principal); G83.4 Cauda equina syndrome; M51.36 Other intervertebral disc degeneration, lumbar region; J45.909 Unspecified asthma, uncomplicated; E03.9 Hypothyroidism, unspecified; F32.9 Major depressive disorder, single episode, unspecified; M48.061 Spinal stenosis, lumbar region without neurogenic claudication; G89.29 Other chronic pain; F41.0 Panic disorder [episodic paroxysmal anxiety]; K59.00 Constipation, unspecified; J01.90 Acute sinusitis, unspecified; E66.9 Obesity, unspecified; Z68.31 Body mass index [BMI] 31.0-31.9, adult; Z88.8 Allergy status to other drugs, medicaments and biological substances; Z90.49 Acquired absence of other specified parts of digestive tract; Z98.51 Tubal ligation status; Z82.49 Family history of ischemic heart disease and other diseases of the circulatory system; Z82.3 Family history of stroke; R09.82 Postnasal drip; T49.6X5A Adverse effect of otorhinolaryngological drugs and preparations, initial encounter; Y92.239 Unspecified place in hospital as the place of occurrence of the external cause
CPT/HCPCS: 36415; 72148; 76000; 80048; 80053; 81025; 85025; 85610; 86140; 86850; 86900; 86901; 99284; A9270-GY; J0330; J0690; J1100; J1170; J1885; J2001; J2250; J2270; J2405; J2704; J2710; J2765; J3010